=== PATIENT | male | born 1970 | race Caucasian/White ===

== ENCOUNTER 2017-02-04 14:44 | Emergency (ER) | payer MEDICARE, MEDICAID ==
[~2017-02-04] VITALS: Ht 167.6 cm; Wt 75.0 kg
[~2017-02-04 14:44] MED LIST: ALPHAGAN P0.1 %; ALPHAGAN P0.1 % OP; AMLODIPINE5 MG PO; AMOXICILLIN500 MG PO; ASPIRIN LOW DOS81 M1 PO; ATENOLOL50 MG PO; BACTRIM DS1 TAB PO; BAYER ASPIRIN E81 MG PO; CAMBIA50 MG; CLONIDINE0.1 MG; CLONIDINE0.1 MG PO; CYCLOBENZAPR10 MG PO; DIVALPROEX SOD500 M2; GLUCOPHAGE1000 MG PO; GLUCOPHAGE500 MG OR; GLUCOPHAGE500 MG PO; HYTRIN1 MG OR; INSULIN SY SC; LASIX20 MG OR; LEVEMIR1000 UNITS IM; LEVEMIR1000 UNITS SC; LEVOTHYROXIN25 MCG OR; LIPITOR10 MG PO; LIPITOR40 M1 PO; LIPITOR40 MG PO; LOPRESSOR 550 MG/TAB PO; LORTAB 5 OR; LOSARTAN POT100 MG PO; LOSARTAN POT25 MG PO; LOSARTAN POT50 MG PO; METFORMIN500 MG PO; MINOCYCLINE100 MG PO; NAFTIN2 % EX; NAPROXEN250 MG OR; NIFEDIPINE30 M1 OR; NOVOLOG100 IU/1 M IM; NOVOLOG100 IU/1 M SC; PERCOCET 5/325M1 TAB PO; PLAVIX75 MG PO; PROSCAR OR; TENORETIC 501 TAB PO; TENORMIN OR; TRAMADOL HCL50 MG PO; TRAMADOL HYDROC50 MG PO; TRIAMCINOLON0.5 % EX; ULTRAM50 M1 PO; [UNRECOGNIZED DRUG - CODE] SC; [UNRECOGNIZED DRUG - OTHER] SC; [UNRECOGNIZED DRUG - REMARK]
[2017-02-04] MEDS ORDERED: MOTRIN800 MG PO (16:04)
[2017-02-04] MEDS ORDERED: PERCOCET 5/325M1 TAB PO (16:04)
[2017-02-04] MEDS ORDERED: FLEXERIL PO (16:04)
[2017-02-04 16:20] VITALS: BP 149/74
== END 2017-02-04 16:20 | disposition home or self-care (01) ==
LOC: ED 14:44
DX: M43.6 Torticollis (principal); M62.830 Muscle spasm of back

== ENCOUNTER 2017-06-04 10:56 | Inpatient (IN) | payer MEDICARE, MEDICAID ==
[~2017-06-04] VITALS: Ht 167.6 cm; Wt 72.0 kg
[~2017-06-04 10:56] MED LIST changes: +BENZONATATE200 MG PO; +FLEXERIL PO; +GABAPENTIN400 M2 PO; +GLYBURIDE5 M1 PO; +IBUPROFEN600 MG PO; +LEVEMIR100 UNIT/M; +METHOCARBAM750 MG PO; +METOPROLOL SUCC50 MG PO; +MOTRIN800 MG PO; +TGT OMEPRAZ20 MG PO
[2017-06-04] MEDS ORDERED: BACLOFEN10 MG PO (11:22)
[2017-06-04 11:57] LABS: HEMATOCRIT 48.8 % (39.0-50.0); HEMOGLOBIN 17.3 g/dl (14.0-18.0); MEAN CELL VOLUME 79.2 fL CALC (80.0-100.0); MEAN CORPUSCULAR HGB 28.1 pG CALC (26.0-32.0); MEAN CORPUSCULAR HGB CONC 35.5 g/L CALC (32.0-36.0); NEUT# 6.37 thou/uL (1.82-7.42); RED BLOOD COUNT 6.16 mill/uL (4.70-6.10); RED CELL DISTRI WIDTH 12.9 % (11.5-15.5)
[2017-06-04 12:11] LABS: ALBUMIN 4.6 g/dL (3.2-5.0); ALKALINE PHOSPHATASE 110 u/l (38-126); ANION GAP 20 (6-22 (CALC)); BILIRUBIN, TOTAL 0.8 mg/dL (0.0-1.4); BUN 19 mg/dL (9-20); BUN/CREATININE RATIO 26 (12-20 (CALC)); CALCIUM 9.7 mg/dL (8.4-10.2); CARBON DIOXIDE 23 mmol/l (22-30); CHLORIDE 91 mmol/l (95-108); CREATININE 0.8 mg/dL (0.7-1.3); GFR > 60 ML/MIN (>=60 (CALC)); GFR FOR AFR.AMER. > 60 ML/MIN (>=60 (CALC)); MAGNESIUM 1.6 mg/dL (1.6-2.3); POTASSIUM 4.9 mmol/l (3.5-5.1); SGOT/AST 16 u/l (17-59); SGPT/ALT 34 u/l (21-72); SODIUM 129 mmol/l (137-146); TOTAL PROTEIN 8.1 g/dL (6.3-8.2)
[2017-06-04 12:19] LABS: GLUCOSE 700 mg/dL (75-110)
[2017-06-04 14:03] VITALS: BP 158/93
[2017-06-04 16:06] VITALS: BP 160/97
[2017-06-04 19:27] VITALS: BP 158/88
[2017-06-04 23:35] VITALS: BP 133/83
[2017-06-05 03:51] VITALS: BP 123/78
[2017-06-05 05:51] LABS: HEMATOCRIT 48.1 % (39.0-50.0); HEMOGLOBIN 16.9 g/dl (14.0-18.0); IMMATURE GRANULOCYTES 2.1 % (0.0-1.0); MEAN CELL VOLUME 79.6 fL CALC (80.0-100.0); MEAN CORPUSCULAR HGB CONC 35.1 g/L CALC (32.0-36.0); NEUT# 5.55 thou/uL (1.82-7.42); RED BLOOD COUNT 6.04 mill/uL (4.70-6.10); RED CELL DISTRI WIDTH 13.1 % (11.5-15.5)
[2017-06-05 06:18] LABS: ANION GAP 15 (6-22 (CALC)); BUN 18 mg/dL (9-20); BUN/CREATININE RATIO 25 (12-20 (CALC)); CALCIUM 9.6 mg/dL (8.4-10.2); CARBON DIOXIDE 29 mmol/l (22-30); CHLORIDE 99 mmol/l (95-108); CREATININE 0.7 mg/dL (0.7-1.3); GFR > 60 ML/MIN (>=60 (CALC)); GFR FOR AFR.AMER. > 60 ML/MIN (>=60 (CALC)); GLUCOSE 204 mg/dL (75-110); POTASSIUM 4.4 mmol/l (3.5-5.1); SODIUM 138 mmol/l (137-146)
[2017-06-05 08:37] LABS: CHOLESTEROL HDL RATIO 5.5 (<4.4 (CALC))
== END 2017-06-05 08:32 | disposition left against medical advice (07) | DRG 639 ==
LOC: ED 10:56 → ED-I 12:25 → ED 12:57 → MS2 12:58
PROVIDERS: Emergency Medicine; Nurse Practitioner Family; ADMIT Internal Medicine; ATTEND Internal Medicine
DX: E11.65 Type 2 diabetes mellitus with hyperglycemia (principal); E11.42 Type 2 diabetes mellitus with diabetic polyneuropathy; N31.9 Neuromuscular dysfunction of bladder, unspecified; E86.0 Dehydration; I10 Essential (primary) hypertension; F17.290 Nicotine dependence, other tobacco product, uncomplicated; E78.5 Hyperlipidemia, unspecified; Z86.73 Personal history of transient ischemic attack (TIA), and cerebral infarction without residual deficits; Z87.442 Personal history of urinary calculi; Z91.14 Patient's other noncompliance with medication regimen; Z79.84 Long term (current) use of oral hypoglycemic drugs; Z79.4 Long term (current) use of insulin

== ENCOUNTER 2017-08-09 07:21 | Emergency (ER) | payer MEDICARE, MEDICAID ==
[~2017-08-09] VITALS: Ht 167.6 cm; Wt 65.9 kg
[~2017-08-09 07:21] MED LIST changes: +BACLOFEN10 MG PO
[2017-08-09 09:42] VITALS: BP 153/87
== END 2017-08-09 09:45 | disposition home or self-care (01) ==
LOC: ED 07:21
DX: S80.02XA Contusion of left knee, initial encounter (principal); E11.40 Type 2 diabetes mellitus with diabetic neuropathy, unspecified; G89.29 Other chronic pain; M54.9 Dorsalgia, unspecified; I10 Essential (primary) hypertension; W19.XXXA Unspecified fall, initial encounter; Z87.442 Personal history of urinary calculi; Z91.81 History of falling; Z79.899 Other long term (current) drug therapy

== ENCOUNTER 2017-08-25 20:37 | Emergency (ER) | payer MEDICARE, MEDICAID ==
[~2017-08-25] VITALS: Ht 167.6 cm; Wt 85.0 kg
[2017-08-25] MEDS ORDERED: LOSARTAN POT50 MG PO (21:02)
[2017-08-25] MEDS ORDERED: PRAVASTATIN20 MG PO (21:03)
[2017-08-25] MEDS ORDERED: LEVEMIR100 UNIT/M SC (21:04)
[2017-08-25] MEDS ORDERED: PERCOCET 5/325M1 TAB PO (21:39)
[2017-08-25] MEDS ORDERED: ORPHENADRINE100 MG PO (21:39)
[2017-08-25 22:07] VITALS: BP 132/81
== END 2017-08-25 22:08 | disposition home or self-care (01) ==
LOC: ED 20:37
DX: G89.29 Other chronic pain (principal); E11.42 Type 2 diabetes mellitus with diabetic polyneuropathy; Z79.4 Long term (current) use of insulin; I10 Essential (primary) hypertension

== ENCOUNTER 2017-10-30 21:31 | Emergency (ER) | payer MEDICARE, MEDICAID ==
[~2017-10-30] VITALS: Ht 167.6 cm; Wt 82.2 kg
[~2017-10-30 21:31] MED LIST changes: +LEVEMIR100 UNIT/M SC; +ORPHENADRINE100 MG PO; +PRAVASTATIN20 MG PO
[2017-10-30 22:14] LABS: HEMOGLOBIN 10.8 g/dl (14.0-18.0); IMMATURE GRANULOCYTES 0.6 % (0.0-1.0); MEAN CELL VOLUME 84.7 fL CALC (80.0-100.0); MEAN CORPUSCULAR HGB 28.6 pG CALC (26.0-32.0); MEAN CORPUSCULAR HGB CONC 33.8 g/L CALC (32.0-36.0); NEUT# 3.44 thou/uL (1.82-7.42); RED BLOOD COUNT 3.78 mill/uL (4.70-6.10); RED CELL DISTRI WIDTH 12.4 % (11.5-15.5)
[2017-10-30] MEDS ORDERED: OMEPRAZOLE20 M2 PO (22:26)
[2017-10-30] MEDS ORDERED: ARGININE PO (22:27)
[2017-10-30] MEDS ORDERED: COQ-10100 M1 PO (22:27)
[2017-10-30] MEDS ORDERED: DULOXETINE HCL20 MG PO (22:29)
[2017-10-30] MEDS ORDERED: ROPINIROLE1 MG PO (22:29)
[2017-10-30] MEDS ORDERED: AMITRIPTYLIN50 MG PO (22:30)
[2017-10-30 22:31] LABS: ALBUMIN 4.4 g/dL (3.2-5.0); ALKALINE PHOSPHATASE 213 u/l (38-126); ANION GAP 15 (6-22 (CALC)); BILIRUBIN, TOTAL 0.4 mg/dL (0.0-1.4); BUN 24 mg/dL (9-20); BUN/CREATININE RATIO 18 (12-20 (CALC)); CALCIUM 9.5 mg/dL (8.4-10.2); CARBON DIOXIDE 26 mmol/l (22-30); CHLORIDE 103 mmol/l (95-108); CREATININE 1.3 mg/dL (0.7-1.3); GFR 59 ML/MIN (>=60 (CALC)); GFR FOR AFR.AMER. > 60 ML/MIN (>=60 (CALC)); GLUCOSE 154 mg/dL (75-110); POTASSIUM 4.5 mmol/l (3.5-5.1); SGOT/AST 42 u/l (17-59); SGPT/ALT 35 u/l (21-72); SODIUM 140 mmol/l (137-146); TOTAL PROTEIN 7.9 g/dL (6.3-8.2)
[2017-10-30] MEDS ORDERED: TAMSULOSIN HCL0.4 MG PO (22:31)
[2017-10-30] MEDS ORDERED: HYDROCO/APAP1 T10 PO (22:34)
[2017-10-30] MEDS ORDERED: AMOX/K CLAV875 M1 PO (22:36)
[2017-10-30 22:37] LABS: PROTHROMBIN TIME 10.6 SECONDS (9.0-12.5)
[2017-10-30 22:43] LABS: MYOGLOBIN 32 ng/mL (0 - 121)
[2017-10-31 00:01] VITALS: BP 137/79
== END 2017-10-31 00:05 | disposition home or self-care (01) ==
LOC: ED 21:31
PROVIDERS: Emergency Medicine
DX: H53.8 Other visual disturbances (principal); Z86.73 Personal history of transient ischemic attack (TIA), and cerebral infarction without residual deficits; I10 Essential (primary) hypertension; E11.9 Type 2 diabetes mellitus without complications; Z79.4 Long term (current) use of insulin; R94.31 Abnormal electrocardiogram [ECG] [EKG]

== ENCOUNTER 2017-11-10 13:04 | Emergency (ER) | payer MEDICARE, MEDICAID ==
[~2017-11-10] VITALS: Ht 167.6 cm; Wt 72.0 kg
[~2017-11-10 13:04] MED LIST changes: +AMITRIPTYLIN50 MG PO; +AMOX/K CLAV875 M1 PO; +ARGININE PO; +COQ-10100 M1 PO; +DULOXETINE HCL20 MG PO; +HYDROCO/APAP1 T10 PO; +OMEPRAZOLE20 M2 PO; +ROPINIROLE1 MG PO; +TAMSULOSIN HCL0.4 MG PO
[2017-11-10 13:27] LABS: HEMATOCRIT 35.2 % (39.0-50.0); HEMOGLOBIN 11.7 g/dl (14.0-18.0); IMMATURE GRANULOCYTES 0.9 % (0.0-1.0); MEAN CELL VOLUME 83.2 fL CALC (80.0-100.0); MEAN CORPUSCULAR HGB 27.7 pG CALC (26.0-32.0); MEAN CORPUSCULAR HGB CONC 33.2 g/L CALC (32.0-36.0); NEUT# 4.53 thou/uL (1.82-7.42); RED BLOOD COUNT 4.23 mill/uL (4.70-6.10); RED CELL DISTRI WIDTH 12.1 % (11.5-15.5)
[2017-11-10 13:42] LABS: ALBUMIN 4.4 g/dL (3.2-5.0); ALKALINE PHOSPHATASE 213 u/l (38-126); ANION GAP 15 (6-22 (CALC)); BILIRUBIN, TOTAL 0.4 mg/dL (0.0-1.4); BUN 18 mg/dL (9-20); BUN/CREATININE RATIO 14 (12-20 (CALC)); CALCIUM 9.6 mg/dL (8.4-10.2); CARBON DIOXIDE 29 mmol/l (22-30); CHLORIDE 100 mmol/l (95-108); CREATININE 1.3 mg/dL (0.7-1.3); GFR 59 ML/MIN (>=60 (CALC)); GFR FOR AFR.AMER. > 60 ML/MIN (>=60 (CALC)); GLUCOSE 255 mg/dL (75-110); POTASSIUM 4.4 mmol/l (3.5-5.1); SGOT/AST 25 u/l (17-59); SGPT/ALT 34 u/l (21-72); SODIUM 140 mmol/l (137-146); TOTAL PROTEIN 7.7 g/dL (6.3-8.2)
[2017-11-10 13:55] LABS: MYOGLOBIN 39 ng/mL (0 - 121)
[2017-11-10 14:57] LABS: URINE BILIRUBIN - DIPSTICK NEGATIVE (NEGATIVE); URINE BLOOD DIPSTICK NEGATIVE (NEGATIVE); URINE COLOR YELLOW; URINE GLUCOSE - DIPSTICK >=1000 mg/dL (NEGATIVE); URINE KETONE NEGATIVE (NEGATIVE); URINE LEUK ESTERASE NEGATIVE (NEGATIVE); URINE NITRITE - DIPSTICK NEGATIVE (Negative); URINE PROTEIN - DIPSTICK NEGATIVE (NEG-TRACE); URINE SPECIFIC GRAVITY 1.015; URINE UROBILINOGEN - DIPSTICK 0.2 E.U./dL (0.2)
[2017-11-10 14:58] LABS: URINE CLARITY CLEAR
[2017-11-10] MEDS ORDERED: METHOCARBAM500 MG PO (16:41)
[2017-11-10] MEDS ORDERED: VITAMIN B-12500 MCG PO (16:43)
[2017-11-10] MEDS ORDERED: TRAVATAN Z0.004 % (16:47)
[2017-11-10] MEDS ORDERED: SUCRALFATE1 GM PO (16:48)
[2017-11-10] MEDS ORDERED: NOVOLIN N100 UNIT/1 (16:49)
[2017-11-10 18:07] VITALS: BP 112/66
== END 2017-11-10 18:07 | disposition home or self-care (01) ==
LOC: ED 13:04
PROVIDERS: Emergency Medicine
DX: R06.02 Shortness of breath (principal); I10 Essential (primary) hypertension
CPT/HCPCS: Q9967

== ENCOUNTER 2018-08-20 09:28 | Outpatient (RCR) | payer MEDICARE, MEDICAID ==
[~2018-08-20 09:28] MED LIST changes: +METHOCARBAM500 MG PO; +NOVOLIN N100 UNIT/1; +SUCRALFATE1 GM PO; +TRAVATAN Z0.004 %; +VITAMIN B-12500 MCG PO
== END 2018-08-20 10:28 | disposition home or self-care (01) ==
LOC: OPWC 09:28
PROVIDERS: ATTEND Emergency Medicine
DX: T81.31XA Disruption of external operation (surgical) wound, not elsewhere classified, initial encounter (principal); S31.30XA Unspecified open wound of scrotum and testes, initial encounter

== ENCOUNTER 2021-10-31 15:03 | Observation (INO) | payer MEDICARE, MEDICAID ==
[~2021-10-31] VITALS: Ht 167.6 cm; Wt 90.0 kg
--- NOTE | 2021-10-31 15:03 | NUR ---
PT TO ROOM VIA WC. ABLE TO STAND AND TRANSFER SELF TO STRETCHER.
[2021-10-31 15:28] LABS: IMMATURE GRANULOCYTES 1.6 % (0.0-5.0); MEAN CELL VOLUME 83.3 fL CALC (80.0-100.0); MEAN CORPUSCULAR HGB 27.6 pG CALC (26.0-32.0); MEAN CORPUSCULAR HGB CONC 33.1 g/dL CAL (32.0-36.0); NEUT# 7.89 thou/uL (1.82-7.42); RED BLOOD COUNT 5.58 mill/uL (4.70-6.10); RED CELL DISTRI WIDTH 12.1 % (11.5-15.5)
[2021-10-31 15:29] LABS: HEMATOCRIT 46.5 % (39.0-50.0); HEMOGLOBIN 15.4 g/dl (14.0-18.0)
[2021-10-31 15:42] LABS: ALKALINE PHOSPHATASE 126 u/l (38-126); BUN 20 mg/dL (9-20); BUN/CREATININE RATIO 18 (12-20 (CALC)); CREATININE 1.1 mg/dL (0.7-1.3); GFR > 60 ML/MIN (>=60 (CALC)); GFR FOR AFR.AMER. > 60 ML/MIN (>=60 (CALC)); POTASSIUM 4.5 mmol/l (3.5-5.1); SGOT/AST 18 u/l (17-59); TOTAL PROTEIN 8.1 g/dL (6.3-8.2)
[2021-10-31 15:52] LABS: ANION GAP 20 (6-22 (CALC)); BILIRUBIN, TOTAL 0.9 mg/dL (0.0-1.4); CARBON DIOXIDE 23 mmol/l (22-30); CHLORIDE 89 mmol/l (95-108); SODIUM 127 mmol/l (137-146)
[2021-10-31 16:52] LABS: URINE BILIRUBIN - DIPSTICK NEGATIVE (NEGATIVE); URINE BLOOD DIPSTICK NEGATIVE (NEGATIVE); URINE COLOR YELLOW; URINE GLUCOSE - DIPSTICK >=1000 mg/dL (NEGATIVE); URINE KETONE NEGATIVE (NEGATIVE); URINE LEUK ESTERASE NEGATIVE (NEGATIVE); URINE PH 5.5 (4.5-8.0); URINE PROTEIN - DIPSTICK NEGATIVE (NEG-TRACE); URINE UROBILINOGEN - DIPSTICK 0.2 E.U./dL (0.2)
[2021-10-31 16:55] LABS: URINE NITRITE - DIPSTICK NEGATIVE (Negative)
--- NOTE | 2021-10-31 17:05 | NUR ---
SITTING ON EDGE OF STRETCHER, RESPS EVEN AND UNLABORED ON ROOM AIR, VSS, MONITORS ATTACHED.
--- NOTE | 2021-10-31 17:48 | NUR ---
MD AT BEDSIDE TO DISCUSS RESULTS AND POC.
--- NOTE | 2021-10-31 18:05 | NUR ---
INSULIN GTT INITIATED PER PROTOCOL
--- NOTE | 2021-10-31 18:18 | NUR ---
INSULIN GTT STOPPED PER MD ORDERS
--- NOTE | 2021-10-31 18:53 | NUR ---
REPORT GIVEN TO KOBE BA
--- NOTE | 2021-10-31 19:00 | NUR ---
PER MARVIN BA, MYXREDLIN INSULIN MEDICATION WAS SCANNED BUT WAS NOT GIVEN.
--- NOTE | 2021-10-31 19:04 | NUR ---
REPORT GIVEN BY MEJIA WONG AT BEDSIDE
--- NOTE | 2021-10-31 19:04 | NUR ---
BLOOD GLUCOSE RECHECKED-233
--- NOTE | 2021-10-31 19:43 | NUR ---
PT READJUSTED IN BED
--- NOTE | 2021-10-31 20:40 | NUR ---
PT GIVEN APPLESAUCE
--- NOTE | 2021-10-31 21:40 | NUR ---
PT REFUSING TO STAY IN HOSPITAL; PT STATES I WANT TO LEAVE; I CAN NOT BE HERE ANYMORE, I JUST WANT TO GO HOME
[2021-10-31 22:00] VITALS: BP 124/90
--- NOTE | 2021-10-31 22:00 | NUR ---
NURSING OBTAINING AMA FORM FOR PT
--- NOTE | 2021-10-31 22:00 | NUR ---
Patient decides to leave AMA. Multiple attempts made to ecourage patient to remain here for continued treatment. Explained to patient all risks of leaving against medical advice including . Pt verbalized understanding of all risks. Pt also encouraged to return to [facility] at any time, especially if symptoms continue or become worse. Pt verbalized understanding.
== END 2021-10-31 22:00 | disposition left against medical advice (07) ==
LOC: ED 15:03 → ED-I 17:40 → ED 19:04 → ED-I 19:05
PROVIDERS: Family Medicine; ADMIT Internal Medicine; ATTEND Internal Medicine
DX: E11.65 Type 2 diabetes mellitus with hyperglycemia (principal); I10 Essential (primary) hypertension; Z79.4 Long term (current) use of insulin; Z20.822 Contact with and (suspected) exposure to COVID-19

== ENCOUNTER 2023-02-12 08:12 | Inpatient (IN) | payer MEDICARE, MEDICAID ==
[~2023-02-12] VITALS: Ht 167.6 cm; Wt 73.9 kg
[2023-02-12 08:29] VITALS: BP 150/89
[2023-02-12 09:30] LABS: BASO% 0.3 % (0-3); EOS% 0.8 % (0-8); HEMATOCRIT 46.2 % (39.0-50.0); HEMOGLOBIN 15.9 g/dl (14.0-18.0); IMMATURE GRANULOCYTES 0.5 % (0.0-5.0); LYMPH% 19.3 % (15-41); MEAN CELL VOLUME 80.2 fL CALC (80.0-100.0); MEAN CORPUSCULAR HGB 27.6 pG CALC (26.0-32.0); MEAN CORPUSCULAR HGB CONC 34.4 g/dL CAL (32.0-36.0); NEUT# 6.79 thou/uL (1.82-7.42); NEUT% 70.1 % (42-76); RED BLOOD COUNT 5.76 mill/uL (4.70-6.10); RED CELL DISTRI WIDTH 11.8 % (11.5-15.5)
[2023-02-12 09:54] LABS: ALBUMIN 4.1 g/dL (3.2-5.0); ALKALINE PHOSPHATASE 110 u/l (38-126); BILIRUBIN, TOTAL 0.8 mg/dL (0.2-1.3); BUN 19 mg/dL (9-20); BUN/CREATININE RATIO 19 (12-20 (CALC)); CHLORIDE 91 mmol/l (95-108); GFR FOR AFR.AMER. > 60 ML/MIN (>=60 (CALC)); GFR OTHER RACES > 60 ML/MIN (>=60 (CALC)); POTASSIUM 4.7 mmol/l (3.5-5.1); SGOT/AST 19 u/l (17-59); SODIUM 129 mmol/l (137-146)
[2023-02-12 10:28] LABS: ANION GAP 13 (6-22 (CALC)); CARBON DIOXIDE 30 mmol/l (22-30)
[2023-02-12 10:37] LABS: URINE BILIRUBIN - DIPSTICK NEGATIVE (NEGATIVE); URINE BLOOD DIPSTICK NEGATIVE (NEGATIVE); URINE COLOR YELLOW; URINE GLUCOSE - DIPSTICK >=1000 mg/dL (NEGATIVE); URINE KETONE NEGATIVE (NEGATIVE); URINE LEUK ESTERASE NEGATIVE (NEGATIVE); URINE PH 5.5 (4.5-8.0); URINE PROTEIN - DIPSTICK NEGATIVE (NEG-TRACE); URINE SPECIFIC GRAVITY <=1.005; URINE UROBILINOGEN - DIPSTICK 0.2 E.U./dL (0.2)
[2023-02-12 10:43] LABS: URINE NITRITE - DIPSTICK NEGATIVE (Negative)
[2023-02-12 13:40] VITALS: BP 121/74
[2023-02-12 14:10] VITALS: BP 121/74
[2023-02-12 14:22] VITALS: BP 123/79
[2023-02-12 18:33] VITALS: BP 149/86
[2023-02-12 20:00] VITALS: BP 149/86
[2023-02-13 03:49] VITALS: BP 109/76
[2023-02-13 05:54] LABS: MAGNESIUM 1.8 mg/dL (1.6-2.3)
[2023-02-13 06:12] VITALS: BP 117/62
[2023-02-13 07:00] VITALS: BP 117/62
[2023-02-13 07:23] LABS: ALBUMIN 3.3 g/dL (3.2-5.0); ALKALINE PHOSPHATASE 70 u/l (38-126); BUN 16 mg/dL (9-20); BUN/CREATININE RATIO 20 (12-20 (CALC)); CARBON DIOXIDE 26 mmol/l (22-30); CREATININE 0.8 mg/dL (0.7-1.3); GFR FOR AFR.AMER. > 60 ML/MIN (>=60 (CALC)); GFR OTHER RACES > 60 ML/MIN (>=60 (CALC)); TOTAL PROTEIN 6.3 g/dL (6.3-8.2)
[2023-02-13 07:25] LABS: ANION GAP 10 (6-22 (CALC)); BILIRUBIN, TOTAL 0.4 mg/dL (0.2-1.3); CHLORIDE 105 mmol/l (95-108); POTASSIUM 3.5 mmol/l (3.5-5.1); SGOT/AST 39 u/l (17-59); SODIUM 137 mmol/l (137-146)
[2023-02-13 15:32] VITALS: BP 109/71
[2023-02-13 16:05] VITALS: BP 109/71
[2023-02-13 19:29] VITALS: BP 141/72
[2023-02-14 04:03] VITALS: BP 109/83
[2023-02-14 06:11] LABS: HEMATOCRIT 42.9 % (39.0-50.0); HEMOGLOBIN 14.3 g/dl (14.0-18.0); MEAN CELL VOLUME 83.6 fL CALC (80.0-100.0); MEAN CORPUSCULAR HGB 27.9 pG CALC (26.0-32.0); MEAN CORPUSCULAR HGB CONC 33.3 g/dL CAL (32.0-36.0); RED BLOOD COUNT 5.13 mill/uL (4.70-6.10); RED CELL DISTRI WIDTH 12.2 % (11.5-15.5)
[2023-02-14 06:41] LABS: ALBUMIN 3.5 g/dL (3.2-5.0); ALKALINE PHOSPHATASE 69 u/l (38-126); BUN 19 mg/dL (9-20); BUN/CREATININE RATIO 21 (12-20 (CALC)); CARBON DIOXIDE 30 mmol/l (22-30); CHLORIDE 104 mmol/l (95-108); CREATININE 0.9 mg/dL (0.7-1.3); GFR FOR AFR.AMER. > 60 ML/MIN (>=60 (CALC)); GFR OTHER RACES > 60 ML/MIN (>=60 (CALC)); MAGNESIUM 1.9 mg/dL (1.6-2.3); SGOT/AST 22 u/l (17-59); SODIUM 140 mmol/l (137-146); TOTAL PROTEIN 6.6 g/dL (6.3-8.2)
[2023-02-14 06:43] LABS: ANION GAP 11 (6-22 (CALC)); BILIRUBIN, TOTAL 0.2 mg/dL (0.2-1.3); POTASSIUM 4.9 mmol/l (3.5-5.1)
[2023-02-14 06:47] VITALS: BP 111/75
[2023-02-14 14:36] VITALS: BP 115/71
[2023-02-14 19:12] VITALS: BP 122/74
[2023-02-15 03:54] VITALS: BP 139/84
[2023-02-15 06:05] LABS: BASO% 0.4 % (0-3); EOS% 1.6 % (0-8); HEMATOCRIT 44.4 % (39.0-50.0); HEMOGLOBIN 14.8 g/dl (14.0-18.0); IMMATURE GRANULOCYTES 0.9 % (0.0-5.0); LYMPH% 14.2 % (15-41); MEAN CELL VOLUME 84.4 fL CALC (80.0-100.0); MEAN CORPUSCULAR HGB 28.1 pG CALC (26.0-32.0); MEAN CORPUSCULAR HGB CONC 33.3 g/dL CAL (32.0-36.0); MONO% 10.9 % (2-13); NEUT# 7.55 thou/uL (1.82-7.42); RED BLOOD COUNT 5.26 mill/uL (4.70-6.10); RED CELL DISTRI WIDTH 12.2 % (11.5-15.5)
[2023-02-15 06:28] LABS: ALBUMIN 3.5 g/dL (3.2-5.0); ALKALINE PHOSPHATASE 77 u/l (38-126); ANION GAP 11 (6-22 (CALC)); BUN 20 mg/dL (9-20); BUN/CREATININE RATIO 22 (12-20 (CALC)); CARBON DIOXIDE 29 mmol/l (22-30); CHLORIDE 101 mmol/l (95-108); CREATININE 0.9 mg/dL (0.7-1.3); GFR FOR AFR.AMER. > 60 ML/MIN (>=60 (CALC)); GFR OTHER RACES > 60 ML/MIN (>=60 (CALC)); MAGNESIUM 1.8 mg/dL (1.6-2.3); POTASSIUM 4.9 mmol/l (3.5-5.1); SGOT/AST 23 u/l (17-59); SODIUM 137 mmol/l (137-146); TOTAL PROTEIN 6.7 g/dL (6.3-8.2)
[2023-02-15 06:36] LABS: BILIRUBIN, TOTAL 0.3 mg/dL (0.2-1.3)
[2023-02-15 06:54] VITALS: BP 100/63
[2023-02-15 16:17] VITALS: BP 165/95
[2023-02-15 19:00] VITALS: BP 131/84
[2023-02-15 19:01] VITALS: BP 131/84
[2023-02-16 04:54] VITALS: BP 100/62
[2023-02-16 05:24] LABS: HEMATOCRIT 43.4 % (39.0-50.0); HEMOGLOBIN 14.4 g/dl (14.0-18.0); MEAN CELL VOLUME 84.1 fL CALC (80.0-100.0); MEAN CORPUSCULAR HGB 27.9 pG CALC (26.0-32.0); MEAN CORPUSCULAR HGB CONC 33.2 g/dL CAL (32.0-36.0); RED BLOOD COUNT 5.16 mill/uL (4.70-6.10); RED CELL DISTRI WIDTH 12.1 % (11.5-15.5)
[2023-02-16 06:03] LABS: ALBUMIN 3.2 g/dL (3.2-5.0); ALKALINE PHOSPHATASE 80 u/l (38-126); ANION GAP 12 (6-22 (CALC)); BILIRUBIN, TOTAL 0.2 mg/dL (0.2-1.3); BUN 21 mg/dL (9-20); BUN/CREATININE RATIO 26 (12-20 (CALC)); CARBON DIOXIDE 29 mmol/l (22-30); CHLORIDE 101 mmol/l (95-108); CREATININE 0.8 mg/dL (0.7-1.3); GFR FOR AFR.AMER. > 60 ML/MIN (>=60 (CALC)); GFR OTHER RACES > 60 ML/MIN (>=60 (CALC)); MAGNESIUM 1.8 mg/dL (1.6-2.3); POTASSIUM 4.6 mmol/l (3.5-5.1); SGOT/AST 25 u/l (17-59); SODIUM 137 mmol/l (137-146); TOTAL PROTEIN 5.9 g/dL (6.3-8.2)
[2023-02-16 07:41] VITALS: BP 109/69
[2023-02-16 14:51] VITALS: BP 123/74
[2023-02-16 18:19] VITALS: BP 102/59
[2023-02-16 19:00] VITALS: BP 102/59
[2023-02-17 04:00] VITALS: BP 116/71
[2023-02-17 04:17] VITALS: BP 116/71
[2023-02-17 06:36] VITALS: BP 112/67
[2023-02-17 14:21] VITALS: BP 131/80
[2023-02-17 19:58] VITALS: BP 134/80
[2023-02-18 04:15] VITALS: BP 114/65
[2023-02-18 05:59] LABS: HEMATOCRIT 38.3 % (39.0-50.0); HEMOGLOBIN 12.8 g/dl (14.0-18.0); MEAN CELL VOLUME 85.7 fL CALC (80.0-100.0); MEAN CORPUSCULAR HGB 28.6 pG CALC (26.0-32.0); MEAN CORPUSCULAR HGB CONC 33.4 g/dL CAL (32.0-36.0); RED BLOOD COUNT 4.47 mill/uL (4.70-6.10); RED CELL DISTRI WIDTH 12.2 % (11.5-15.5)
[2023-02-18 06:12] LABS: ALBUMIN 2.9 g/dL (3.2-5.0); ALKALINE PHOSPHATASE 82 u/l (38-126); ANION GAP 9 (6-22 (CALC)); BUN 18 mg/dL (9-20); BUN/CREATININE RATIO 27 (12-20 (CALC)); CARBON DIOXIDE 29 mmol/l (22-30); CHLORIDE 101 mmol/l (95-108); CREATININE 0.7 mg/dL (0.7-1.3); GFR FOR AFR.AMER. > 60 ML/MIN (>=60 (CALC)); GFR OTHER RACES > 60 ML/MIN (>=60 (CALC)); MAGNESIUM 1.7 mg/dL (1.6-2.3); POTASSIUM 3.9 mmol/l (3.5-5.1); SGOT/AST 26 u/l (17-59); SODIUM 136 mmol/l (137-146); TOTAL PROTEIN 5.7 g/dL (6.3-8.2)
[2023-02-18 07:21] VITALS: BP 104/70
[2023-02-18 18:38] VITALS: BP 126/73
[2023-02-18 22:17] VITALS: BP 133/77
[2023-02-19 04:26] VITALS: BP 117/67
[2023-02-19 06:04] VITALS: BP 123/70
[2023-02-19 18:49] VITALS: BP 137/82
[2023-02-20 04:28] VITALS: BP 112/66
[2023-02-20 05:58] VITALS: BP 121/72
[2023-02-20 15:19] VITALS: BP 140/85
[2023-02-20 19:02] VITALS: BP 141/84
[2023-02-21 04:13] VITALS: BP 150/90
[2023-02-21 06:41] VITALS: BP 154/81
[2023-02-21] MEDS ORDERED: LEVEMIR FL100 UNIT/M SC (08:46)
[2023-02-21] MEDS ORDERED: HUMALOG KW100 UNIT/M SC (08:47)
[2023-02-21] MEDS ORDERED: ZYVOX600 MG PO (08:50)
[2023-02-21] MEDS ORDERED: LORTAB 5/3255 MG PO (08:52)
== END 2023-02-21 10:13 | DRG 603 ==
LOC: ED 08:12 → ED-I 11:00 → ED 11:46 → MS2 11:47
PROVIDERS: Family Medicine; Nurse Practitioner Family; ADMIT Internal Medicine; ATTEND Internal Medicine
PROC: 0J9Q0ZZ Drainage of Right Foot Subcutaneous Tissue and Fascia, Open Approach (ICD-10-PCS; principal; 2023-02-18)
DX: L02.611 Cutaneous abscess of right foot (principal); L03.115 Cellulitis of right lower limb; E11.65 Type 2 diabetes mellitus with hyperglycemia; I10 Essential (primary) hypertension; E11.40 Type 2 diabetes mellitus with diabetic neuropathy, unspecified; E78.5 Hyperlipidemia, unspecified; H54.8 Legal blindness, as defined in USA; N31.9 Neuromuscular dysfunction of bladder, unspecified; N40.0 Benign prostatic hyperplasia without lower urinary tract symptoms; B95.1 Streptococcus, group B, as the cause of diseases classified elsewhere; T78.1XXA Other adverse food reactions, not elsewhere classified, initial encounter; R11.0 Nausea; L29.9 Pruritus, unspecified; X58.XXXA Exposure to other specified factors, initial encounter; Z79.84 Long term (current) use of oral hypoglycemic drugs; Z79.4 Long term (current) use of insulin; Z88.1 Allergy status to other antibiotic agents; Z86.73 Personal history of transient ischemic attack (TIA), and cerebral infarction without residual deficits; Z18.10 Retained metal fragments, unspecified; Z20.822 Contact with and (suspected) exposure to COVID-19
CPT/HCPCS: J1650; J2020; S0073

== ENCOUNTER 2023-04-10 16:27 | Inpatient (IN) | payer MEDICARE, MEDICAID ==
[~2023-04-10] VITALS: Ht 167.6 cm; Wt 77.9 kg
[~2023-04-10 16:27] MED LIST changes: +HUMALOG KW100 UNIT/M SC; +LEVEMIR FL100 UNIT/M SC; +LORTAB 5/3255 MG PO; +ZYVOX600 MG PO
[2023-04-10 16:48] VITALS: BP 129/76
--- NOTE | 2023-04-10 17:12 | NUR ---
PT ARRIVED ON UNIT @ 1637 BY AMBULATING, ALERT AND ORIENTED X 3, C/O SHARP PAIN @ 7/10 TO RIGHT FOOT, SETTLED IN ROOM, ORIENTED TO ROOM AND CALL LINO. REFUSED TO HAVE IV CATHETER PLACE, REFUSED TO PUT GOWN ON. DRESSING TO RIGHT FOOT IN PLACE, PT REPORTS HOME HEALTH NURSE SHOULD HAVE CHANGED DRESSING TODAY BUT DID NOT.WILL CONTINUE TO MONITOR.
--- NOTE | 2023-04-10 17:20 | NUR ---
PT'S BLOOD SUGAR WAS 173 @1720. NURSE NOTIDIED.
--- NOTE | 2023-04-10 17:34 | NUR ---
CONTACTED DR FAYE'S OFFICE IN REFERENCE TO A PHYSICIAN CONSULT. I SPOKE WITH MAYRA (ANSWERING SERVICE) AT 1728 HRS.
[2023-04-10 17:51] LABS: BASO% 0.5 % (0-3); HEMATOCRIT 43.7 % (39.0-50.0); IMMATURE GRANULOCYTES 0.5 % (0.0-5.0); LYMPH% 26.9 % (15-41); MEAN CORPUSCULAR HGB 27.6 pG CALC (26.0-32.0); MONO% 8.8 % (2-13); NEUT# 4.05 thou/uL (1.82-7.42); NEUT% 61.3 % (42-76); RED BLOOD COUNT 5.08 mill/uL (4.70-6.10)
[2023-04-10 18:15] LABS: ALKALINE PHOSPHATASE 55 u/l (38-126); ANION GAP 12 (6-22 (CALC)); BUN 28 mg/dL (9-20); BUN/CREATININE RATIO 24 (12-20 (CALC)); CARBON DIOXIDE 30 mmol/l (22-30); CHLORIDE 104 mmol/l (95-108); CREATININE 1.2 mg/dL (0.7-1.3); GFR FOR AFR.AMER. > 60 ML/MIN (>=60 (CALC)); GFR OTHER RACES > 60 ML/MIN (>=60 (CALC)); SGOT/AST 26 u/l (17-59); SODIUM 142 mmol/l (137-146)
[2023-04-10 18:22] LABS: ALBUMIN 4.4 g/dL (3.2-5.0); BILIRUBIN, TOTAL 0.2 mg/dL (0.2-1.3); TOTAL PROTEIN 7.6 g/dL (6.3-8.2)
--- NOTE | 2023-04-10 19:47 | NUR ---
PT'S MED REC NOT DONE PT STATES HE DOES NOT KNOW NAMES OR DOSES OF MEDS BUT HE KNOWS THE REASON FOR TAKING THEM, HE DID MONTION HE TAKES BLOOD PRESSURE MEDS AND SEIZURE MEDS.
[2023-04-10 19:49] VITALS: BP 96/62
--- NOTE | 2023-04-10 20:06 | NUR ---
RECIEVE BEDSIDE REPORT. PT A/OX3. RESPIRATIONS EVEN AND UNLABORED ON ROOM AIR. LUNG SOUNDS CLEAR. HEART RHYTHM NORMAL. BOWEL SOUNDS ACTIVE. NO IV SITE PATENT. AWARE. PT AGREEES TO IV PLACEMENT IN AM BEFORE SURGERY. DRESSING TO RIGHT FOOT REMAINS CDI, SCHEDULED FOR I&D WITH PANICCO. PEDAL PULSES WEAK. PT DENIES OF ANY PAINS. TERRAZZO WORKER HELPER INFORMED IN REPORT OF DNR, PT DOES NOT HAVE COPY. PT EXPRESSED TO BOTH MEJIA FLORES AND TERRAZZO WORKER HELPER THAT HE DOES NOT WANT TO RESESITATED, MD AWARE. ATTEMPTED TO COMPLETE MED REC, PT STATES "THE ONLY THING I KNOW IS THAT I TAKE 9 PILLS AND 2 INSULINS." NO RECORD FROM MD OFFICE AND PT STATES THERE IS NO ONE AT HOME TO READ THEM OFF OVER PHONE. PT ORIENTED TO ROOM AND CALL SYSTEM. ALL SAFTEY PRECAUTIONS ARE IN PLACE WITH ALL LIGHT IN REACH.
--- NOTE | 2023-04-10 20:55 | NUR ---
pt had a BP of @1948. JADA Mehta notified @1949.
[2023-04-10 21:12] LABS: URINE BILIRUBIN - DIPSTICK NEGATIVE (NEGATIVE); URINE BLOOD DIPSTICK NEGATIVE (NEGATIVE); URINE CLARITY CLEAR; URINE COLOR YELLOW; URINE GLUCOSE - DIPSTICK >=1000 mg/dL (NEGATIVE); URINE KETONE NEGATIVE (NEGATIVE); URINE LEUK ESTERASE NEGATIVE (Negative); URINE NITRITE - DIPSTICK NEGATIVE (Negative); URINE PROTEIN - DIPSTICK NEGATIVE (NEG-TRACE); URINE UROBILINOGEN - DIPSTICK 0.2 E.U./dL (0.2)
[2023-04-10] MEDS ORDERED: LEXAPRO20 MG PO (23:32)
[2023-04-10] MEDS ORDERED: DEPAKOTE ER500 MG PO (23:32)
--- NOTE | 2023-04-10 23:32 | NUR ---
PT RESTING IN SEMI FOWLERS POSITION. RESPIRATIONS EVEN AND UNLABORED ON ROOM AIR. SCHEDULED MEDS ADMINISTERED. PT NPO AT THIS TIME. PT VERBALIZED UNDERSTANDING. PT DENIES OF ANY ADDITIONAL NEEDS. ALL SAFTEY PRECAUTIONS IN PLACE
[2023-04-10] MEDS ORDERED: NEURONTIN600 MG PO (23:33)
[2023-04-10] MEDS ORDERED: COZAAR50 MG PO (23:33)
[2023-04-10] MEDS ORDERED: KEPPRA500 M2 PO (23:33)
[2023-04-10] MEDS ORDERED: JARDIANCE25 MG PO (23:33)
[2023-04-10] MEDS ORDERED: PRAVASTATIN40 MG PO (23:34)
[2023-04-10] MEDS ORDERED: METFORMIN HCL1000 MG PO (23:34)
[2023-04-10] MEDS ORDERED: LOPRESSOR25 M1 PO (23:34)
[2023-04-10] MEDS ORDERED: TRESIBA FL100 UNIT/M SC (23:35)
[2023-04-10] MEDS ORDERED: TIZANIDINE4 MG PO (23:35)
--- NOTE | 2023-04-11 04:18 | NUR ---
PT SLEEPING IN LOW FOWLERS POSITION. RESPIRATIONS EVEN AND UNLABORED ON ROOM AIR. IV SITE TO BE OBTAINED. DRESSING TO RIGHT FOOT REMAINS CDI. NO SIGHS OF DISTRESS AT THIS TIME. ALL SAFTEY PRECAUTIONS ARE IN PLACE WITH CALL LIGHT IN REACH.
[2023-04-11 05:17] VITALS: BP 105/65
[2023-04-11 06:36] VITALS: BP 90/60
--- NOTE | 2023-04-11 07:27 | NUR ---
PT RESTING IN LOW FOWLERS POSITION.A/OX3 ASSESSMENT AND VS COMPLETED. PT TO HAVE POSSIBLE PROCEDURE DONE TODAY. HEART RHYTHM NORM. RESPIRATIONS ON ROOM AIR.IV SITE NOTED Nicolle NEWMAN AT BEDSIDE
--- NOTE | 2023-04-11 07:30 | NUR ---
Nurse was notified of blood pressure being low.
[2023-04-11 09:09] VITALS: BP 93/55
--- NOTE | 2023-04-11 11:11 | NUR ---
PT OFF FLOOR PER OR NURSES RECIEVED PT. ALL SAFETY PRECAUTIONS IN PLACE.
--- NOTE | 2023-04-11 13:41 | NUR ---
PT RETURNED FROM OR VIA STRETCHER SURGICAL WOUND TO RIGHT FOOT. SCD LOCATED ON LEFT. POST OP VITAL SIGNS SET PT REQUESTED FOOD FOOD PROVIDED DIABETIC DIET PER MD. FLUIDS INFUSING TO RAC . PT DENIES ADDITIONAL NEEDS AT THE TIME.
[2023-04-11 15:22] VITALS: BP 99/59
--- NOTE | 2023-04-11 15:40 | NUR ---
PT RESTING IN LOW FOWLERS POSITION PT WOUND VAC IN PLACE. PT WHEN EYES CLOSED AND RESTING FOOT FALLS FROM PILLOW PT EDUCATED TO KEEP ELEVATED PT AWARE NO ICE TO BE USED.
[2023-04-11 16:22] VITALS: BP 109/63
--- NOTE | 2023-04-11 17:53 | NUR ---
PT HAS NOT URINATED SINCE ARRIVAL TO FLOOR. EDUCATED PT NEED OF URINATION IF NOT POSSIBLE URINARY CATH. INSERT.
[2023-04-11 19:24] VITALS: BP 103/66
--- NOTE | 2023-04-11 20:15 | NUR ---
RECIEVED REPORT FROM DAYSHIFT NURSE. PY IS LAYING IN BED IN SEMIFOWLER POSITION WITH WOUND VAC ON RIGHT FOOT. FOOT IS PROPPED UP AND PT STATES THAT HE IS STARTING TO HAVE SOME PAIN. PT ACKNOWLEGES CHANGE OF NURSE FOR THE NIGHT. CALL LIGHT WITHIN REACH AND SAFTEY PRECAUTIONS IN PLACE.
--- NOTE | 2023-04-11 21:27 | NUR ---
PT HAS NOT VOIDED SINCE ARRIVNG TO UNIT FROM PACU TODAY. PT DENIES ANY PAIN/ DISCOMFORT OR PRESSURE. PT EDUCATED ON POSSIBLE STRAIGHT CATH OR MURPHY INSERTION. PT IS ADAMANT HE WILL NOT ALLOW INSERTION OF ANY TYPE OF CATHETER AT THIS TIME. RISKS DISCUSSED WITH PT AND PT AGREES TO ADVISE NURSE IF HE FEELS ANY PAIN/ DISCOMFORT/ OR PRESSURE. ON EXAM PT'S BLADDER DOES NOT FEEL DISTENDED AT THIS TIME. BLADDER SCANNER IS NOT CURRENTLY WORKING. DISCUSSED WITH PRIMARY NURSE Irene CROWLEY AND Araceli DAVE APRN MADE AWARE.
[2023-04-12] VITALS (7 sets, daily range): BP systolic 99–120; BP diastolic 60–75
--- NOTE | 2023-04-12 00:30 | NUR ---
PT IS SLEEPING IN BE COMFORTABLY. PT SHOWS NO SIGNS OF PAIN OR DISCOMFORT AT THIS TIME. CALL LIGHT WITHIN REACH AND SAFETY PRECAUTIONS IN PLACE.
--- NOTE | 2023-04-12 04:30 | NUR ---
PT IS SITTING UP IN BED AWAKE. PT STATES HE WANTS TO SIT IN THE RECLINER. PT COMPLAINS OF PAIN IN FOOT BEING A 6 OUT OF 10. PAIN MED WAS GIVEN. CALL LIGHT WITHIN REACH AND SAFETY PRECAUTIONS IN PLACE.
[2023-04-12 06:03] LABS: BASO% 0.4 % (0-3); HEMOGLOBIN 13.8 g/dl (14.0-18.0); IMMATURE GRANULOCYTES 0.9 % (0.0-5.0); LYMPH% 39.8 % (15-41); MEAN CELL VOLUME 88.7 fL CALC (80.0-100.0); MEAN CORPUSCULAR HGB 27.8 pG CALC (26.0-32.0); MEAN CORPUSCULAR HGB CONC 31.4 g/dL CAL (32.0-36.0); MONO% 7.4 % (2-13); NEUT# 2.76 thou/uL (1.82-7.42); NEUT% 48.5 % (42-76); RED BLOOD COUNT 4.96 mill/uL (4.70-6.10); RED CELL DISTRI WIDTH 13.3 % (11.5-15.5)
[2023-04-12 06:23] LABS: ALBUMIN 3.6 g/dL (3.2-5.0); ALKALINE PHOSPHATASE 50 u/l (38-126); ANION GAP 10 (6-22 (CALC)); BUN 20 mg/dL (9-20); BUN/CREATININE RATIO 19 (12-20 (CALC)); CARBON DIOXIDE 29 mmol/l (22-30); CHLORIDE 107 mmol/l (95-108); CREATININE 1.1 mg/dL (0.7-1.3); GFR FOR AFR.AMER. > 60 ML/MIN (>=60 (CALC)); GFR OTHER RACES > 60 ML/MIN (>=60 (CALC)); POTASSIUM 4.8 mmol/l (3.5-5.1); SGOT/AST 27 u/l (17-59); SODIUM 142 mmol/l (137-146); TOTAL PROTEIN 6.4 g/dL (6.3-8.2)
[2023-04-12 06:32] LABS: BILIRUBIN, TOTAL 0.3 mg/dL (0.2-1.3)
--- NOTE | 2023-04-12 07:50 | NUR ---
PT C/O ITCHING ALL OVER AFTER ZOSYN IV ANTIBIOTIC. MARY,CLAIMS TECHNICIAN NOTIFIED AND ORDER FOR BENADRYL GIVEN. ADMINISTERED, WILL MONITOR PT CLOSELY.
--- NOTE | 2023-04-12 08:00 | NUR ---
PT SITTING UP IN CHAIR ALERT AND ORIENTED X3. PT STATES ITCHING IMPROVED WITH BENADRYL. PT HAS NO C/O PAIN AT THIS TIME. IV TO RAC CLEAN AND INTACT. PT AMBULATES WELL TO BATHROOM FOR TOILETING NEEDS. WOUND VAC TO RIGHT FOOT INTACT AND DRAINING. CALL LIGHT WITHIN REACH.
--- NOTE | 2023-04-12 12:00 | NUR ---
PT SITTING UP ON BED EATING BREAKFAST. PT HAS NO C/O PAIN AT THIS ITME. NO CHANGE IN STATUS AT THIS TIME. CALL LIGHT WITHIN REACH.
--- NOTE | 2023-04-12 16:00 | NUR ---
PT HAS FAMILY IN ROOM AT BEDSIDE. PT HAS NO C/O PAIN . NO CHANGE IN STATUS. WOUND VAC TO RIGHT FOOT INTACT. CALL LIGHT WITHIN REACH.
--- NOTE | 2023-04-12 20:02 | NUR ---
BEDSIDE REPORT RECIEVED. PT A/OX3. RESPIRATIONS EVEN AND UNLABORED ON ROOM AIR. LUNG SOUNDS CLEAR. HEART RHYTHM NORMAL. BOWEL SOUNDS ACTIVE. #20G RAC PATENT. WOUND VAC TO RIGHT FOOT, SUCTION @125. MINIMAL DRAINAGE NOTED.EVEVATED WITH PILLOW X2.PT C/O 05/27 PAIN, MEDICATED PER EMAR. GLUCOSE 182, COVERAGE ADMINISTERED. PT DENIES OF ANY NEEDS. ALL SAFTEY PRECAUTIONS ARE IN PLACE WITH CALL LIGHT IN REACH
[2023-04-13] VITALS (8 sets, daily range): BP systolic 91–111; BP diastolic 54–78
--- NOTE | 2023-04-13 00:52 | NUR ---
PT SLEEPING IN SEMI FOWLERS POSITION. RESPIRATIONS EVEN AND UNLABORED ON ROOM AIR. #20G RAC REMAINS IN PLACE. WOUND VAC TO RIGHT FOOT, SUCTION @125 WITH DRESSING CDI. NO SIGNS OF ANY DISTRESS. ALL SAFTEY PRECAUTIONS ARE IN PLACE WITH CALL LIGHT IN REACH.
--- NOTE | 2023-04-13 04:41 | NUR ---
PT SITTING UP IN RECYLINER WATCHING TV. RESPIRATIONS EVEN AND UNLABORED ON ROOM AIR. #20G RAC NOTED. WOUND VAC TO RIGHT FOOT @125, DRESSING CDI. PT REMINDED ON HEAL TOUCH WEIGHT BEARING. PT VERBALIZED UNDERSTANDING. PT DENIES OF ANY NEEDS. ALL SAFTEY PRECAUTIONS ARE IN PLACE WITH CALL LIGHT IN REACH.
[2023-04-13 04:59] LABS: BASO% 0.5 % (0-3); EOS% 1.4 % (0-8); HEMOGLOBIN 14.1 g/dl (14.0-18.0); IMMATURE GRANULOCYTES 0.4 % (0.0-5.0); LYMPH% 40.3 % (15-41); MEAN CELL VOLUME 89.6 fL CALC (80.0-100.0); MEAN CORPUSCULAR HGB 28.1 pG CALC (26.0-32.0); MEAN CORPUSCULAR HGB CONC 31.3 g/dL CAL (32.0-36.0); MONO% 8.7 % (2-13); NEUT# 2.76 thou/uL (1.82-7.42); NEUT% 48.7 % (42-76); RED BLOOD COUNT 5.02 mill/uL (4.70-6.10); RED CELL DISTRI WIDTH 13.2 % (11.5-15.5)
[2023-04-13 05:18] LABS: ALBUMIN 3.9 g/dL (3.2-5.0); ALKALINE PHOSPHATASE 53 u/l (38-126); BILIRUBIN, TOTAL 0.2 mg/dL (0.2-1.3); BUN 24 mg/dL (9-20); BUN/CREATININE RATIO 19 (12-20 (CALC)); CARBON DIOXIDE 31 mmol/l (22-30); CHLORIDE 107 mmol/l (95-108); CREATININE 1.3 mg/dL (0.7-1.3); GFR FOR AFR.AMER. > 60 ML/MIN (>=60 (CALC)); GFR OTHER RACES 58 ML/MIN (>=60 (CALC)); SGOT/AST 34 u/l (17-59); SODIUM 142 mmol/l (137-146); TOTAL PROTEIN 6.7 g/dL (6.3-8.2)
[2023-04-13 05:20] LABS: ANION GAP 8 (6-22 (CALC)); POTASSIUM 4.4 mmol/l (3.5-5.1)
--- NOTE | 2023-04-13 06:48 | NUR ---
PT REFUSED TO HAVE HIS GLUCOSE LEVEL CHECK. NURSE WAS NOTIFIED.
--- NOTE | 2023-04-13 08:00 | NUR ---
PT ALERT AND ORIENTED X 3, PT HAS NO C/O PAIN AT THIS TIME. IV SITE TO RAC CLEAN AND INTACT. WOUND VAC CLEAN AND INTACT TO RIGHT FOOT, SUCTIONING MOD AMOUNT OF DRAINAGE. PT AMBULATES WELL TO BATHROOM FOR TOILETING. PT HAS CALL LIGHT WITHIN REACH.
--- NOTE | 2023-04-13 12:00 | NUR ---
PT LAYING IN BED RESTING WITH EYES CLOSED, AWAKENED TO VERBAL STIMULI. PT HAS NO C/O PAIN AT THIS TIME. NO CHANGE IN STATUS AT THIS TIME. PT HAS CALL LIGHT SHABNAMEightfold LogicCLINTON ROY.
--- NOTE | 2023-04-13 16:00 | NUR ---
PT IN BED RESTING. PT HAS NO C/O PAIN AT THIS TIME. WOUND VAC INTACT. PT HAS NO CHANGE IN STATUS AT THIS TIME. PT HAS CALL LIGHT WITHIN REACH.
--- NOTE | 2023-04-13 20:00 | NUR ---
PT RESTING IN BED, NO SIGNS OF DISTRESS NOTED, RESP EVEN AND UNLABORED. PT ALERT AND ORIENTED X3, RLE ELEVATED ON PILLOWS, DRESSING CDI, PT HAS A WOUND VAC CONTINUOUS SUCTION 125. PT DENIES ANY PAIN AT THIS TIME. DISCUSSED POC, ASSESSMENT COMPLETED AT THIS TIME. CALL LIGHT IN REACH,CONTINUE TO MONITOR.
--- NOTE | 2023-04-14 | NUR ---
PT RESTING IN BED, NO SIGNS OF DISTRESS NOTED, RESP EVEN AND UNLABORED. IV MAXWELL QUINTERO, PT DENIES ANY NEEDS OR COMPLAINTS AT THIS TIME, CALL LIGHT IN REACH,CONTINUE TO MONITOR.
[2023-04-14 04:12] VITALS: BP 147/85
--- NOTE | 2023-04-14 04:14 | NUR ---
PT RESTING IN BED WATCHING TV, NO SIGNS OF DISTRESS NOTED, RESP EVEN AND UNLABORED. AM LABS OBTAINED, TOLERATED WELL. VITALS OBTAINED. PT DENIES ANY NEEDS OR COMPLAINTS AT THIS TIME. CALL LIGHT IN REACH, CONTINUE TO MONITOR.
[2023-04-14 05:09] LABS: BASO% 0.4 % (0-3); EOS% 2.2 % (0-8); HEMATOCRIT 41.5 % (39.0-50.0); HEMOGLOBIN 13.1 g/dl (14.0-18.0); IMMATURE GRANULOCYTES 0.5 % (0.0-5.0); LYMPH% 38.2 % (15-41); MEAN CELL VOLUME 87.9 fL CALC (80.0-100.0); MEAN CORPUSCULAR HGB 27.8 pG CALC (26.0-32.0); MEAN CORPUSCULAR HGB CONC 31.6 g/dL CAL (32.0-36.0); MONO% 10.3 % (2-13); NEUT# 2.68 thou/uL (1.82-7.42); NEUT% 48.4 % (42-76); RED BLOOD COUNT 4.72 mill/uL (4.70-6.10); RED CELL DISTRI WIDTH 13.1 % (11.5-15.5)
[2023-04-14 05:10] LABS: ANION GAP 7 (6-22 (CALC)); BUN 18 mg/dL (9-20); BUN/CREATININE RATIO 15 (12-20 (CALC)); CARBON DIOXIDE 32 mmol/l (22-30); CHLORIDE 106 mmol/l (95-108); CREATININE 1.2 mg/dL (0.7-1.3); GFR FOR AFR.AMER. > 60 ML/MIN (>=60 (CALC)); GFR OTHER RACES > 60 ML/MIN (>=60 (CALC)); MAGNESIUM 1.9 mg/dL (1.6-2.3); POTASSIUM 4.2 mmol/l (3.5-5.1); SODIUM 141 mmol/l (137-146)
[2023-04-14 05:22] VITALS: BP 147/85
[2023-04-14 06:10] VITALS: BP 126/83
--- NOTE | 2023-04-14 09:22 | NUR ---
PT SEEN AT REST IN THE BED, NO ACUTE DISTRESS. RIGHT FOOT ELEVATED ON PILLOWS. PT MEDICATED FOR PAIN TO RIGHT FOOT. BREAKFAST INCLUDED FAM, WHICH WAS REFUSED BY PT PER SEVERE ALLERGY.
--- NOTE | 2023-04-14 12:04 | NUR ---
PT AMBULATORY TO BR, UNHOOKED FROM WOUND VAC TO ALLOW. NO FURTHER COMPLAINTS OF PAIN OR OTHERWISE.
[2023-04-14 14:56] VITALS: BP 109/75
--- NOTE | 2023-04-14 16:02 | NUR ---
PT CONTINUES AT REST IN THE BED, NO DISTRESS, NO COMPLAINTS OF PAIN TO RIGHT FOOT.
[2023-04-14 18:12] VITALS: BP 151/90
--- NOTE | 2023-04-14 20:00 | NUR ---
RECEIVED REPORT FROM NURSE ROSS, PATIENT RESTING IN BED, ALERT ORIENTED, NOTED MILDY RED ON CHEST AND BACK, SALINE LOCK NOTED ON RAC PATENT FLUSHES WELL, LUNG SOUNDS CLEAR BM 04/14, BS 142, PATIENT ON WOUND VAC RT FOOT SUCTION AT 125 GOOD SEAL, RT FOOT OFFLOADED WITH 2 PILLOWS, C/O PAIN PS 05/27 WILL MEDICATE, PATIENT BED PADDED FOR SEIZURE PREC CALL LIGHT IN REACH, BED IN LOW POSITION.
--- NOTE | 2023-04-15 00:51 | NUR ---
PATIENT AWAKE AT THIS TIME, STILL WITH WOUND VAC RT FOOT 125 SUCTION, GOOD SEAL, DUE ZOSYN GIVEN CALL LIGHT IN REACH.
[2023-04-15 03:59] VITALS: BP 142/87
--- NOTE | 2023-04-15 04:52 | NUR ---
PATIENT RESTING IN BED EYES CLOSED, BREATHING EVEN UNLABORED, N0 DISCOMFOTRS NOTED AT THIS TIME, CALL LIGHT IN REACH, RT LEG ELEVATED WITH TWO PILLOWS.
[2023-04-15 05:00] LABS: BASO% 0.2 % (0-3); EOS% 2.4 % (0-8); HEMATOCRIT 41.1 % (39.0-50.0); HEMOGLOBIN 12.8 g/dl (14.0-18.0); IMMATURE GRANULOCYTES 0.6 % (0.0-5.0); MEAN CELL VOLUME 87.8 fL CALC (80.0-100.0); MEAN CORPUSCULAR HGB 27.4 pG CALC (26.0-32.0); MEAN CORPUSCULAR HGB CONC 31.1 g/dL CAL (32.0-36.0); MONO% 11.6 % (2-13); NEUT# 2.46 thou/uL (1.82-7.42); NEUT% 46.2 % (42-76); RED BLOOD COUNT 4.68 mill/uL (4.70-6.10); RED CELL DISTRI WIDTH 13.3 % (11.5-15.5)
[2023-04-15 05:14] LABS: ANION GAP 7 (6-22 (CALC)); BUN 17 mg/dL (9-20); BUN/CREATININE RATIO 17 (12-20 (CALC)); CARBON DIOXIDE 33 mmol/l (22-30); CHLORIDE 104 mmol/l (95-108); GFR FOR AFR.AMER. > 60 ML/MIN (>=60 (CALC)); GFR OTHER RACES > 60 ML/MIN (>=60 (CALC)); MAGNESIUM 1.9 mg/dL (1.6-2.3); POTASSIUM 4.4 mmol/l (3.5-5.1); SODIUM 139 mmol/l (137-146)
--- NOTE | 2023-04-15 05:44 | NUR ---
PATIENT INITIALLY REFUSING ZOSYN BUT LATER AGREED TO GET DOSE OF IV ZOSYN, STATED HE WILL GO HOME TODAY.
--- NOTE | 2023-04-15 06:49 | NUR ---
PT RESTING IN LOW FOWLERS POSITION.A/OX3 PT RESPIRATIONS ON ROOM AIR. IV SITE NOTED. PT WOUND VAC IN PLACE 125MMHG. PT STATED WILL BE LEAVING TODAY PT STATED NO ONE AT HOME TO FEED DOGS . PT EDUCATED THE NEED OF STAY PT REFUSED. EDUCATED WAIT FOR PROVIDER TO ROUND PT STATED WILL LEAVE BY 0800. PT NEED OF REINFORCEMENT.ALL SAFETY PRECAUTIONS IN PLACE.
[2023-04-15 07:04] VITALS: BP 176/91
--- NOTE | 2023-04-15 12:42 | NUR ---
PT RESTING WOUND VAC IN PLACE. AT 125MMHG. PT STATED WAITING TO TALK WITH PHARMACIST UPDATE ON MEDICATIONS . PT HAS NOT LEFT AMA. PT DENIES ADDITIONAL NEEDS AT THE TIME.
--- NOTE | 2023-04-15 16:30 | NUR ---
wound vac dressing dressed with gauze ,kerlix wrap and gustavo wrap.
--- NOTE | 2023-04-15 16:30 | NUR ---
PT WOUND VAC DRESSING CHANGED. NO LEAKS NOTED PER WOUND VAC. @ 125MMHG. PER PROVIDER NOTE DUE SATURDAY,SATURDAY AND SATURDAY. PT ACCU CHECK AND VS COLLECTED PT NO LONGER TO AMA. PT ABLE TO FIND SOMEONE TO FEED DOGS AT HOME. PT DENIES ADDITIONAL NEEDS AT THE TIME ALL SAFETY PRECAUTION IN PLACE WITH CALL LIGHT IN REACH.
[2023-04-15 16:40] VITALS: BP 134/73
--- NOTE | 2023-04-15 18:05 | NUR ---
PT UNABLE TO OBTAIN ULTRASOUND TODAY DUE TO US UNAVAILABLE PER HOLIDAY.
[2023-04-15 20:15] VITALS: BP 135/80
--- NOTE | 2023-04-15 20:15 | NUR ---
RECEIVED REPORT FROM DAYSHIFT NURSE. PT IS LYING IN BED IN SEMIFOWLERS POSITION. ADVISED PT OF CHANGE OF SHIFT AND CHANGE OF NURSE FOR THE NIGHT. PT ACKNOWLEGED. PT STATES OF HAVING NO PAIN AT THIS MOMENT AND HAS NO COMPLAINTS AT THIS MOMENT ASWELL. CALL LIGHT WITHIN REACH AND SAFETY PRECAUTIONS IN PLACE.
--- NOTE | 2023-04-16 00:20 | NUR ---
PT IS LYING IN BED SLEEPING COMFORTABLY. PT SHOWS NO SIGNS OF PAIN OR DISTRESS AT THIS TIME. CALL LIGHT WITHIN REACH AND SAFETY PRECAUTIONS IN PLACE.
--- NOTE | 2023-04-16 02:30 | NUR ---
PT C/O PAIN TO RT FOOT, LEVEL 8/10; ADMINISTERED PAIN MED PER EMAR. SAFETY PRECAUTIONS IN PLACE WITH CALL LIGHT IN REACH.
[2023-04-16 03:33] VITALS: BP 129/71
--- NOTE | 2023-04-16 04:17 | NUR ---
PT RESTING ON BED WITH EYES CLOSED. NO DISTRESS OR PAIN NOTED. VS COMPLETED. NO VOICED NEEDS AT THIS TIME. SAFETY PRECAUTIONS IN PLACE WITH CALL LIGHT IN REACH.
--- NOTE | 2023-04-16 08:00 | NUR ---
PT UP IN CHAIR EATING BREAKFAST. ALERT AND ORIENTED X 3. PT HAS NO C/O PAIN AT THIS TIME. LUNGS SOUNDS CLEAR. IV TO RAC CLEAN AND INTACT. WOUND VAC TO RIGHT FOOT INTACT WITH SUCTION ON AT 125. DRESSING CLEAN AND FREE FROM DRAINAGE AT THIS TIME. AMBULATES TO BATHROOM FOR TOILETING NEEDS. PT HAS CALL LIGHT WITHIN REACH.
[2023-04-16 08:39] VITALS: BP 121/71
--- NOTE | 2023-04-16 12:30 | NUR ---
PT DOWN TO ER FOR PICC PLACEMENT. NO CHANGE IN STATUS AT THIS TIME.
--- NOTE | 2023-04-16 12:58 | NUR ---
PT OUT OF BED UP TO SHOWER. PT HAS NO C/O PAIN AT THIS TIME. PT HAS CALL LIGHT WITHIN REACH. NO CHANGE IN STATUS AT THIS TIME.
[2023-04-16 14:46] VITALS: BP 147/80
[2023-04-16 15:03] VITALS: BP 147/80
--- NOTE | 2023-04-16 16:00 | NUR ---
PT SITTING UP IN CHAIR WATCHING TV. PT HAS NO C/O PAIN AT THIS TIME. PT HAS NO CHANGE IN STATUS. CALL LIGHT WITHIN REACH.
[2023-04-16 18:47] VITALS: BP 163/87
--- NOTE | 2023-04-16 19:26 | NUR ---
BEDSIDE REPORT RECEIVED FROM OFF GOING NURSE. PATIENT AWAKE AND TALKATIVE WITH A MALE AND FEMALE VISITOR AT BEDSIDE. C/O PAIN TO RIGHT FOOT. WOUND VAC REMAINS IN PLACE TO RIGHT FOOT AND FOOT IS ELEVATED OFF BED. WILL MEDICATE FOR PAIN PER MD ORDER. RESPIRATIONS EVEN AND UNLABORED ON ROOM AIR. CALL LIGHT WITHIN REACH.
[2023-04-16 19:27] VITALS: BP 163/87
--- NOTE | 2023-04-16 22:28 | NUR ---
PATIENT SITTING UP IN RECLINER IN ROOM WATCHING TV. DENIES PAIN OR DISCOMFORT AT THIS TIME. CALL LIGHT WITHIN REACH.
--- NOTE | 2023-04-16 23:45 | NUR ---
REPORT RECEIVED FROM Treva GREEN RN
--- NOTE | 2023-04-16 23:45 | NUR ---
BEDSIDE REPORT GIVEN TO ONCOMING NURSE. PATIENT AWAKE IN RECLINER WATCHING TV. DENIES PAIN OR DISCOMFORT AT THIS TIME. CALL LIGHT WITHIN REACH.
--- NOTE | 2023-04-17 01:05 | NUR ---
B/P 122/70
[2023-04-17 03:59] VITALS: BP 103/58
--- NOTE | 2023-04-17 04:31 | NUR ---
LABS DRAWN AT THIS TIME. PICC TO SUNSHINE PATENT WITH POSITIVE BLOOD RETURN. PATIENT TOLERATED WELL. ANB STARTED AT THIS TIME.
[2023-04-17 06:02] LABS: BASO% 0.5 % (0-3); EOS% 2.6 % (0-8); HEMATOCRIT 41.1 % (39.0-50.0); HEMOGLOBIN 13.1 g/dl (14.0-18.0); IMMATURE GRANULOCYTES 0.8 % (0.0-5.0); LYMPH% 34.3 % (15-41); MEAN CELL VOLUME 87.3 fL CALC (80.0-100.0); MEAN CORPUSCULAR HGB 27.8 pG CALC (26.0-32.0); MEAN CORPUSCULAR HGB CONC 31.9 g/dL CAL (32.0-36.0); MONO% 12.3 % (2-13); NEUT# 3.06 thou/uL (1.82-7.42); NEUT% 49.5 % (42-76); RED BLOOD COUNT 4.71 mill/uL (4.70-6.10); RED CELL DISTRI WIDTH 13.6 % (11.5-15.5)
[2023-04-17 06:33] VITALS: BP 134/76
[2023-04-17 06:37] LABS: ALBUMIN 3.7 g/dL (3.2-5.0); ALKALINE PHOSPHATASE 43 u/l (38-126); ANION GAP 8 (6-22 (CALC)); BUN 19 mg/dL (9-20); BUN/CREATININE RATIO 22 (12-20 (CALC)); CARBON DIOXIDE 34 mmol/l (22-30); CHLORIDE 104 mmol/l (95-108); CREATININE 0.8 mg/dL (0.7-1.3); GFR FOR AFR.AMER. > 60 ML/MIN (>=60 (CALC)); GFR OTHER RACES > 60 ML/MIN (>=60 (CALC)); MAGNESIUM 1.8 mg/dL (1.6-2.3); SGOT/AST 21 u/l (17-59); SODIUM 141 mmol/l (137-146); TOTAL PROTEIN 6.4 g/dL (6.3-8.2)
[2023-04-17 06:40] LABS: BILIRUBIN, TOTAL 0.1 mg/dL (0.2-1.3)
--- NOTE | 2023-04-17 07:30 | NUR ---
RECIEVED BEDSIDE REPORT, NO S/S OF DISTRESS, PATIENT HAS NO NEEDS AT THIS TME OR COMPLAINTS OF PAIN, PATIENT SAFETY MEASURES IN PLACE.
--- NOTE | 2023-04-17 12:12 | NUR ---
PATIENT IN BED, NO S/S OF DISTRESS, PATIENT SAFTEY MEASURES IN PLACE, PATIENT MEDICATED FOR PAIN.
[2023-04-17 15:27] VITALS: BP 139/80
[2023-04-17 15:30] VITALS: BP 139/80
--- NOTE | 2023-04-17 18:28 | NUR ---
PATIENT AMBULLATORY IN ROOM, PAIN CONTROLED WITH PERCOCET,NO S/S OF DISTRESS, PATIENT SAFETY MEASURES IN PLACE.
[2023-04-17 19:02] VITALS: BP 140/78
--- NOTE | 2023-04-17 20:00 | NUR ---
PATIENT RESTING, WOUND VAC WORKING PROGRAMED AT 125MHG. PATIENT DENIES ANY CURRENT NEEDS OR CURRENT PAIN. CALL LIGHT AND BEDSIDE TABLE WITHIN REACH.
--- NOTE | 2023-04-18 01:00 | NUR ---
PATIENT ABX HUNG AT THIS TIME.
[2023-04-18 04:19] VITALS: BP 116/77
[2023-04-18 06:40] VITALS: BP 114/69
--- NOTE | 2023-04-18 06:58 | NUR ---
LABS DRAW AT THIS TIME. ABX STARTED
--- NOTE | 2023-04-18 07:00 | NUR ---
RECEIVE REPORT FROM RIBEIRO RN. PATIENT ALERTA AND ORIENTED X3. STABLE AT THIS TIME. REPORTS SOME PAIN BUT DOES NOT WANT MEDICATION NOW. PATIENT IS EDUCATED ABOUD MEDICATIONS FOR TODAY AND NURSING PLAN. PT REFER UNDERSTAND. SAFETY AND FALL PRECAUTIONS IN PLACE. CALL LIGHT WITHIN IN REACH.
[2023-04-18 07:25] LABS: BASO% 0.5 % (0-3); EOS% 3.1 % (0-8); HEMOGLOBIN 12.8 g/dl (14.0-18.0); IMMATURE GRANULOCYTES 0.9 % (0.0-5.0); LYMPH% 35.1 % (15-41); MEAN CELL VOLUME 87.3 fL CALC (80.0-100.0); MEAN CORPUSCULAR HGB 27.9 pG CALC (26.0-32.0); MONO% 13.3 % (2-13); NEUT# 2.59 thou/uL (1.82-7.42); NEUT% 47.1 % (42-76); RED BLOOD COUNT 4.58 mill/uL (4.70-6.10); RED CELL DISTRI WIDTH 13.6 % (11.5-15.5)
[2023-04-18 08:00] VITALS: BP 114/69
[2023-04-18 08:03] LABS: ALBUMIN 3.7 g/dL (3.2-5.0); ALKALINE PHOSPHATASE 40 u/l (38-126); ANION GAP 10 (6-22 (CALC)); BUN 21 mg/dL (9-20); BUN/CREATININE RATIO 25 (12-20 (CALC)); CARBON DIOXIDE 31 mmol/l (22-30); CHLORIDE 103 mmol/l (95-108); CREATININE 0.8 mg/dL (0.7-1.3); GFR FOR AFR.AMER. > 60 ML/MIN (>=60 (CALC)); GFR OTHER RACES > 60 ML/MIN (>=60 (CALC)); POTASSIUM 4.1 mmol/l (3.5-5.1); SGOT/AST 23 u/l (17-59); SODIUM 139 mmol/l (137-146); TOTAL PROTEIN 6.4 g/dL (6.3-8.2)
[2023-04-18 08:07] LABS: BILIRUBIN, TOTAL 0.2 mg/dL (0.2-1.3)
[2023-04-18 08:42] VITALS: BP 114/69
[2023-04-18] MEDS ORDERED: LORTAB 5/3255 MG PO (09:53)
[2023-04-18] MEDS ORDERED: PIPER/TAZOBA1 IN1 IV (10:39)
--- NOTE | 2023-04-18 11:37 | NUR ---
PATIENT WITH DISCHARGE ORDER. TRANSFER TO THE CORRECTION. WOUND VAC BANDAGE IS CHANGED ACCORDING TO MEDICAL ORDER. PATIENT TOLERATED WELL.
--- NOTE | 2023-04-18 14:02 | NUR ---
Discharge instructions given. Patient verbalizes understanding of same. Discharged in stable condition via Wheelchair to *Other with staff. All belongings sent with pt. CALLED [facility] AND THE REPORT IS GIVED TO MICHEAL ELIAS
== END 2023-04-18 13:57 | DRG 908 ==
LOC: MS2 16:27
PROVIDERS: Internal Medicine; Nurse Practitioner Family; ADMIT Internal Medicine; ATTEND Internal Medicine
PROC: 0LBV0ZZ Excision of Right Foot Tendon, Open Approach (ICD-10-PCS; principal; 2023-04-11)
PROC: 02HV33Z Insertion of Infusion Device into Superior Vena Cava, Percutaneous Approach (ICD-10-PCS; 2023-04-16)
PROC: B518ZZA Fluoroscopy of Superior Vena Cava, Guidance (ICD-10-PCS; 2023-04-16)
DX: T81.31XA Disruption of external operation (surgical) wound, not elsewhere classified, initial encounter (principal); L03.115 Cellulitis of right lower limb; L97.418 Non-pressure chronic ulcer of right heel and midfoot with other specified severity; I10 Essential (primary) hypertension; E11.65 Type 2 diabetes mellitus with hyperglycemia; E11.621 Type 2 diabetes mellitus with foot ulcer; E11.42 Type 2 diabetes mellitus with diabetic polyneuropathy; G40.909 Epilepsy, unspecified, not intractable, without status epilepticus; N31.9 Neuromuscular dysfunction of bladder, unspecified; F41.9 Anxiety disorder, unspecified; H54.8 Legal blindness, as defined in USA; B96.89 Other specified bacterial agents as the cause of diseases classified elsewhere; Y83.8 Other surgical procedures as the cause of abnormal reaction of the patient, or of later complication, without mention of misadventure at the time of the procedure; Z91.199 Patient's noncompliance with other medical treatment and regimen due to unspecified reason; Z79.84 Long term (current) use of oral hypoglycemic drugs; Z86.73 Personal history of transient ischemic attack (TIA), and cerebral infarction without residual deficits; Z88.1 Allergy status to other antibiotic agents; Z79.4 Long term (current) use of insulin; Z59.82 Transportation insecurity; Z59.89 Other problems related to housing and economic circumstances; Z20.822 Contact with and (suspected) exposure to COVID-19; L97.513 Non-pressure chronic ulcer of other part of right foot with necrosis of muscle; E11.40 Type 2 diabetes mellitus with diabetic neuropathy, unspecified
CPT/HCPCS: J0131; J1650; J3490

== ENCOUNTER 2025-01-10 07:27 | Inpatient (IN) | payer MEDICARE, MEDICAID ==
[2025-01-10] VITALS (10 sets, daily range): BP systolic 142–166; BP diastolic 76–99
[~2025-01-10] VITALS: Ht 167.6 cm; Wt 75.0 kg
[~2025-01-10 07:27] MED LIST changes: +COZAAR50 MG PO; +DEPAKOTE ER500 MG PO; +JARDIANCE25 MG PO; +KEPPRA500 M2 PO; +LEXAPRO20 MG PO; +LOPRESSOR25 M1 PO; +METFORMIN HCL1000 MG PO; +NEURONTIN600 MG PO; +PIPER/TAZOBA1 IN1 IV; +PRAVASTATIN40 MG PO; +TIZANIDINE4 MG PO; +TRESIBA FL100 UNIT/M SC
--- NOTE | 2025-01-10 07:35 | NUR ---
PT AMBULATES TO ROOM TWO.
[2025-01-10] MEDS ORDERED: SODIUM CHLORIDE 0.9% 1,000 ML IV ONE ×2 (07:45→08:50)
[2025-01-10] MEDS ORDERED: KETOROLAC TROMETHAMINE 15 MG/ML SDV IV ONE (07:45)
[2025-01-10 08:08] LABS: BASO% 0.3 % (0-3); EOS% 0.7 % (0-8); HEMATOCRIT 44.9 % (39.0-50.0); HEMOGLOBIN 15.5 g/dl (14.0-18.0); IMMATURE GRANULOCYTES 0.8 % (0.0-5.0); LYMPH% 15.4 % (15-41); MEAN CORPUSCULAR HGB 27.5 pG CALC (26.0-32.0); MEAN CORPUSCULAR HGB CONC 34.5 g/dL CAL (32.0-36.0); NEUT# 8.98 thou/uL (1.82-7.42); NEUT% 73.8 % (42-76); RED BLOOD COUNT 5.63 mill/uL (4.70-6.10); RED CELL DISTRI WIDTH 11.9 % (11.5-15.5)
[2025-01-10 08:12] LABS: MEAN CELL VOLUME 79.8 fL CALC (80.0-100.0)
[2025-01-10] MEDS ORDERED: AZTREONAM 1 GM in SODIUM CHLORIDE 0.9% 50 ML IV ONE (08:15)
[2025-01-10 08:20] LABS: BILIRUBIN, TOTAL 0.7 mg/dL (0.2-1.3); BUN 30 mg/dL (9-20); BUN/CREATININE RATIO 22 (12-20 (CALC)); CARBON DIOXIDE 28 mmol/l (22-30); CREATININE 1.4 mg/dL (0.7-1.3); ESTIMATED GFR 59 ML/MIN (>=90 (CALC)); POTASSIUM 4.7 mmol/l (3.5-5.1); SGOT/AST 23 u/l (17-59); TOTAL PROTEIN 7.5 g/dL (6.3-8.2)
[2025-01-10] MEDS ORDERED: DOXYCYCLINE HYCLATE 100 MG in SODIUM CHLORIDE 0.9% 100 ML IV ONE (08:20)
[2025-01-10] MEDS ORDERED: Diph, Acellular Pertussis, Tet 0.5 ML/VIAL (Tdap) SDV IM ONE (08:25)
[2025-01-10] MEDS ORDERED: ONDANSETRON HCl 4 MG/2 ML SDV IV ONE (08:40)
[2025-01-10] MEDS ORDERED: MORPHINE SULFATE 4 MG/ML VIAL IV ONE (08:40)
[2025-01-10 08:45] LABS: ALKALINE PHOSPHATASE 130 u/l (38-126); ANION GAP 13 (6-22 (CALC)); CHLORIDE 91 mmol/l (95-108); SODIUM 127 mmol/l (137-146)
[2025-01-10] MEDS ORDERED: INSULIN REGULAR (HUMAN) 100 UNIT/ML INJ IV ONE (08:50)
--- NOTE | 2025-01-10 09:21 | NUR ---
PT RESTING, NO NEEDS AT THIS TIME.
--- NOTE | 2025-01-10 09:40 | NUR ---
WHILE TRYING TO RECONCILLE MEDS, PT STATES HE HAS BEEN OFF MOST OF HIS MEDS FOR OVER A MONTH, BECAUSE DIDNT HAVE ANY, BUT STATES STARTED ON SOME OF THEM SATURDAY, BUT CANT REMEMBER DOSAGES. UNABLE TO VERIFY ANY OF THEM
[2025-01-10] MEDS ORDERED: ACETAMINOPHEN 325 MG/TAB PO PRN (09:50)
[2025-01-10] MEDS ORDERED: ONDANSETRON 4 MG/TAB ODT SL PRN (09:50)
[2025-01-10] MEDS ORDERED: SODIUM CHLORIDE 0.9% 1,000 ML IV PRN (09:50)
[2025-01-10] MEDS ORDERED: Polyethylene Glycol 3350 17 GM/PKT PO PRN (09:50)
[2025-01-10] MEDS ORDERED: HYDROmorphone HCL 2 MG/AMP IV PRN (09:50)
[2025-01-10] MEDS ORDERED: MELATONIN 3 MG/TAB PO PRN (09:50)
[2025-01-10] MEDS ORDERED: oxyCODONE HCL 5 MG/TAB PO PRN (09:50)
[2025-01-10 09:53] LABS: URINE BILIRUBIN - DIPSTICK Negative (NEGATIVE); URINE BLOOD DIPSTICK Negative (NEGATIVE); URINE GLUCOSE - DIPSTICK 500 mg/dL (NEGATIVE); URINE KETONE Negative (NEGATIVE); URINE LEUK ESTERASE Negative (NEGATIVE); URINE NITRITE - DIPSTICK Negative (Negative); URINE PH 5.5 (4.5-8.0); URINE PROTEIN - DIPSTICK Negative (NEG-TRACE); URINE SPECIFIC GRAVITY <=1.005; URINE UROBILINOGEN - DIPSTICK 0.2 E.U./dL (0.2)
[2025-01-10 09:55] LABS: URINE COLOR Yellow
[2025-01-10] MEDS ORDERED: INSULIN LISPRO 100 UNITS/ML ML SC SCH (11:00)
--- NOTE | 2025-01-10 11:13 | NUR ---
01/10/2025 @1057 PT ACCU CHECK IS 532.
[2025-01-10] MEDS ORDERED: GADOPICLENOL (VUEWAY) 0.5 MM/ML 3.75MM/7.5ML VIAL IV ONE (11:30)
--- NOTE | 2025-01-10 13:00 | NUR ---
PT C/O BEING HUNGRY AFTER HAVING MEAL AND REQUEST ANOTHER MEAL TRAY, INFORMED/EDUCATED ON DIET ORDERS, STATED HE WILL HAVE HIS FAMILY BRING IN FOOD FOR HIM IF HE IS NOT ABLE TO GET IT HERE, ALSO STATING HE WANTS TO EAT WHATEVER AND WHENEVER HE WANTS TO EAT. HE ALSO REPORTED HE IS A DNR AND DOES NOT WANT TO BE RESUSSITATED UNDER ANY CIRCUMSTANCE, ADVISED MD WILL BE INFORMED AND SIGN DOCUMENT, HE SAID HE HAS REPORTED HIS CONCERNS TO THIS HOSPITAL MORE THAN ONCE. INFORMED REASON FOR RENEWAL IS THAT PT MAY CHANGE THEIR MIND FROM TIME TO TIME; THEREFORE, STAFF HAS TO BE CERTAIN THEIR WISHES ARE CURRENT AT EACH ADMISSION. HE STATED UNDERSTANDING.
--- NOTE | 2025-01-10 13:29 | NUR ---
REPORT RECEIVED FROM ARMANDO IN ED, PT ARRIVED ON UNIT AT 1031 TRANSPORTED VIA W/C AND AMBULATED TO BED, ALERT AND ORIENTED X 4, C/O SHARP LEFT FOOT PAIN @ 710. ORIENTED TO ROOM AND CALL LINO, SETTLED IN BED.
[2025-01-10] MEDS ORDERED: Meropenem 1 GM in SODIUM CHLORIDE 0.9% 100 ML IV SCH (14:00)
--- NOTE | 2025-01-10 17:22 | NUR ---
PINS AND SCREWS IN NECK, LOWER BACK, SHOULDERS, FACE AND STEEL PLACES IN HEAD
--- NOTE | 2025-01-10 17:29 | NUR ---
COTTON MACHINE OPERATOR REPORTED PROCEDURE WILL BE ADDRESSED IN AM.
--- NOTE | 2025-01-10 19:20 | NUR ---
PATIENT OBSERVED SITTING UP IN BED. ALERT AND ABLE TO MAKE NEEDS KNOWN. ASSESSMENT COMPLETE. NO DISTRESS NOTED. NO COMPLAINTS OF PAIN AT THIS TIME. LEFT FOOT APPEARS SLIGHTLY EDEMATOUS. PATIENT HAS IT ELEVATED ON PILLOWS. REMINDED PATIENT HE IS NPO AFTER MIDNIGHT. DENIES NEEDING ANYTHING AT THIS TIME. BED IN LOW POSITION. CALL LINO IN REACH.
--- NOTE | 2025-01-10 19:55 | NUR ---
NOTIFIED MD OF PATIENT BS OF 421 WITH A GLUCOSE LAB DRAW OF 434. CONTINUE TO GIVE ONLY 14 UNITS PER MD AND SLIDING SCALE ORDER.
--- NOTE | 2025-01-10 20:30 | NUR ---
PATIENT REFUSED TO LET WATER RESOURCES ENGINEER PAD SIDERAILS FOR SEIZURE PRECAUTIONS.
[2025-01-10] MEDS ORDERED: ATORVASTATIN CALCIUM 40 MG/TAB PO SCH (21:00)
[2025-01-10] MEDS ORDERED: METOPROLOL TARTRATE 25 MG/TAB PO SCH (21:00)
--- NOTE | 2025-01-10 23:55 | NUR ---
PATIENT REMAINS RESTING IN BED. DENIES NEEDING ANYTHING AT THIS TIME. BED REMAINS IN LOW POSITION. CALL LINO IN REACH.
[2025-01-11] VITALS (7 sets, daily range): BP systolic 100–163; BP diastolic 62–87
--- NOTE | 2025-01-11 04:15 | NUR ---
PATIENT REMAINS RESTING IN BED. DENIES NEEDING ANYTHING AT THIS TIME. REMAINS NPO PER DR ORDERS. CALL LINO AND BELONGINGS IN REACH.
[2025-01-11 04:30] LABS: BASO% 0.4 % (0-3); HEMATOCRIT 40.6 % (39.0-50.0); HEMOGLOBIN 13.8 g/dl (14.0-18.0); MEAN CORPUSCULAR HGB 27.9 pG CALC (26.0-32.0); MONO% 10.6 % (2-13); NEUT# 6.15 thou/uL (1.82-7.42); RED BLOOD COUNT 4.95 mill/uL (4.70-6.10); RED CELL DISTRI WIDTH 12.2 % (11.5-15.5)
[2025-01-11 04:48] LABS: ALBUMIN 3.2 g/dL (3.2-5.0); BILIRUBIN, TOTAL 0.5 mg/dL (0.2-1.3); CREATININE 1.2 mg/dL (0.7-1.3); MAGNESIUM 1.9 mg/dL (1.6-2.3); POTASSIUM 4.2 mmol/l (3.5-5.1); TOTAL PROTEIN 6.3 g/dL (6.3-8.2)
--- NOTE | 2025-01-11 08:10 | NUR ---
PT IS FOUND IN BED AND IN SEVERE PAIN. PT IS HAVING SURGERY ON HIS LEFT FOOT TODAY AT 11AM WITH DR. MERINO. PT IS A&O X4; STABLE. PT CAN MOVE ALL EXTREMITES; NWB ON LEFT FOOT. PLAN OF CARE WAS REVIEWED WITH THE PT; NO FURTHER QUESTIONS AT THIS TIME. CALL LIGHT IS WITHIN REACH; BED ALARM IS ON.
[2025-01-11] MEDS ORDERED: LOSARTAN Potassium 50 MG/TAB PO SCH (09:00)
[2025-01-11] MEDS ORDERED: INSULIN GLARGINE 100 UNITS/ML SC SCH (09:00)
[2025-01-11] MEDS ORDERED: SODIUM CHLORIDE 0.9% 1,000 ML BAG IV ONE (09:23)
[2025-01-11] MEDS ORDERED: MIDAZOLAM HCL 2 MG/2 ML VIAL IV ONE (09:23)
[2025-01-11] MEDS ORDERED: PROPOFOL 200 MG/20 ML VIAL IV ONE (09:23)
[2025-01-11] MEDS ORDERED: LIDOCAINE HCL 2% 2ML SDV IV ONE (09:23)
[2025-01-11] MEDS ORDERED: BUPIVACAINE HCL PF 0.5% 30 ML VIAL ONE (10:57)
[2025-01-11] MEDS ORDERED: STERILE WATER FOR IRRIGATION 500 ML BTL IR ONE (10:57)
[2025-01-11] MEDS ORDERED: SODIUM CHLORIDE 0.9% 1,000 ML IV ONE (11:19)
[2025-01-11] MEDS ORDERED: FAMOTIDINE 10MG/ML 2ML SDV IV ONE (11:29)
[2025-01-11] MEDS ORDERED: HYDROmorphone HCL 2 MG/AMP ONE (11:33)
--- NOTE | 2025-01-11 12:10 | NUR ---
PT IS IN SX CURRENTLY. PT LEFT FLOOR AT 1110; SHOULD BE BACK AROUND 1230-1PM.
--- NOTE | 2025-01-11 14:15 | NUR ---
THIS RN RECEIVED A DETAIL REPORT FROM PACU STAFF. PT WAS REPORTEDLY COMBATIVE DOWN IN THE PACU. KONSTANTIN (ICU/ NEURO DIRECTOR) BROUGHT HIM BACK TO HIS ROOM (277). PATIENT STATED HE TRUST THIS RN AND KONSTANTIN TO BE AROUND HIM. PATIENT'S NEPHEW WAS AT BEDSIDE. PT WAS VISIBLY UPSET. PT STATED HE WAS SCARE, HE WAS CRYING AND HE HAD A BIT OF PAIN. KONSTANTIN AND THIS RN GOT HIM SETTLED. PT WISHED TO REMAIN IN THE WHEELCHAIR; IT MADE HIM FEEL MORE SAFE. PT REFUSED ALL VITALS AND BLOOD SUGAR POST OP. PT WAS A&O X3 BUT "NOT HIMSELF". THIS RN REMAINED AT BEDSIDE UNTIL PT WAS FEELING BETTER. CALL LIGHT IS WITHIN REACH AND FAMILY IS AT BEDSIDE.
--- NOTE | 2025-01-11 16:15 | NUR ---
PT'S CONDITION REMAINS THE SAME. PT FEELS SAFE IN HIS ROOM; CALL LIGHT IS WITHIN REACH.
--- NOTE | 2025-01-11 16:42 | NUR ---
PT IS DOING MUCH BETTER HE STATES. PT IS STILL IN PAIN- WILL MEDICATE NEEDED. HE LET THIS RN TAKE VITALS BUT IS REFUSING BLOOD SUGAR CHECK. HE IS EATING AND IS MORE COGNITIVELY AWARE. PT IS STILL IN WHEELCHAIR REQUESTED. CALL LIGHT IS WITHIN REACH.
--- NOTE | 2025-01-11 21:00 | NUR ---
drowsy when awakened. dsg cdi to lt foot. no c/o pain voiced. ivf infusing well. refused telemetry & glucometer.
[2025-01-12] VITALS (7 sets, daily range): BP systolic 99–161; BP diastolic 58–84
--- NOTE | 2025-01-12 00:05 | NUR ---
awake. drinking & voiding lg amounts. has been medicated for pain as requested.
--- NOTE | 2025-01-12 03:58 | NUR ---
awake. has been medicated for pain as requested. ivf infusing well.
[2025-01-12 05:20] LABS: BASO% 0.1 % (0-3); EOS% 0.1 % (0-8); HEMATOCRIT 40.6 % (39.0-50.0); HEMOGLOBIN 13.6 g/dl (14.0-18.0); IMMATURE GRANULOCYTES 1.8 % (0.0-5.0); LYMPH% 7.8 % (15-41); MEAN CELL VOLUME 81.7 fL CALC (80.0-100.0); MEAN CORPUSCULAR HGB 27.4 pG CALC (26.0-32.0); MEAN CORPUSCULAR HGB CONC 33.5 g/dL CAL (32.0-36.0); MONO% 8.6 % (2-13); NEUT# 13.69 thou/uL (1.82-7.42); NEUT% 81.6 % (42-76); RED BLOOD COUNT 4.97 mill/uL (4.70-6.10); RED CELL DISTRI WIDTH 12.3 % (11.5-15.5)
--- NOTE | 2025-01-12 05:20 | NUR ---
c/o lt foot dressing "too tight." requested this gag writer to "take it off." told pt no & he began to remove dressing. instructed pt he could explain to dr jeffery the reason he removed it. oxycodone 5mg po given per request.
[2025-01-12 05:36] LABS: ALBUMIN 3.1 g/dL (3.2-5.0); BILIRUBIN, TOTAL 0.7 mg/dL (0.2-1.3); CREATININE 1.5 mg/dL (0.7-1.3); MAGNESIUM 2.2 mg/dL (1.6-2.3); TOTAL PROTEIN 6.4 g/dL (6.3-8.2)
[2025-01-12 05:49] LABS: POTASSIUM 5.2 mmol/l (3.5-5.1)
--- NOTE | 2025-01-12 08:01 | NUR ---
PT YELLING AT STAFF, THREATED TO THROW BREAKFAST TRAY AT STAFF BECAUSE IT HAD TURKEY FAM ON IT. SPOKE TO PT ABOUT GETTING A NEW TRAY, PT CALMED DOWN. PT REPORTH THAT HE REMOVED HIS FOOT DRESSING THIS MORNING AND RE-WRAPPED HIS FOOT. SPOKE TO PT ABOUT THE RISK OF INFECTION.
[2025-01-12] MEDS ORDERED: INSULIN GLARGINE 100 UNITS/ML SC SCH (09:00)
[2025-01-12] MEDS ORDERED: HYDROmorphone HCL 2 MG/AMP IV PRN (09:40)
--- NOTE | 2025-01-12 11:10 | NUR ---
TELEPHONE ORDER TAKEN FROM DR MERINO TO CHANGE LEFT FOOT DRESSING BEDAINE WET TO DRY, WRAP WITH KURLEX, FOLLOWED BY AN DMITRI BANDAGE.
--- NOTE | 2025-01-12 13:01 | NUR ---
PERFORMED DRESSING CHANGED ON LEFT FOOT. WOUND CLOSER TO TOES HAS ONE AREA OF SUTURSE WITH PURULENT DROPS. COVERED WITH BATADINE DRESSING, THEN DRY 4X4 GAUZE, KURLEX WRAP, FOLLOWED BY AN DMITRI DRESSING. RE-EDUCATED PT ON IMPORTANCE OF STAYING OFF FOOT. ELEVATED FOOT ON 2 PILLOWS. PT TOLERATED WITH PAIN MEDICATION. PT ON IM
--- NOTE | 2025-01-12 20:30 | NUR ---
awake. talking on cell phone. no c/o pain voiced. dsg to lt foot cdi. po fluids taken well. voids per urinal.
--- NOTE | 2025-01-12 23:10 | NUR ---
[id number] report given from previous nurse Glory. pt lying in bed on left side. appears to be sleeping. good rise and fall of chest. HOB at 15 degrees per patient
[2025-01-13] VITALS: BP 119/60
[2025-01-13 04:12] VITALS: BP 119/60
[2025-01-13 07:00] VITALS: BP 120/71
[2025-01-13 07:19] LABS: BASO% 0.4 % (0-3); EOS% 2.3 % (0-8); HEMATOCRIT 38.4 % (39.0-50.0); HEMOGLOBIN 12.8 g/dl (14.0-18.0); IMMATURE GRANULOCYTES 0.8 % (0.0-5.0); LYMPH% 21.3 % (15-41); MEAN CORPUSCULAR HGB 28.3 pG CALC (26.0-32.0); MEAN CORPUSCULAR HGB CONC 33.3 g/dL CAL (32.0-36.0); NEUT# 6.33 thou/uL (1.82-7.42); NEUT% 66.2 % (42-76); RED BLOOD COUNT 4.52 mill/uL (4.70-6.10); RED CELL DISTRI WIDTH 12.3 % (11.5-15.5)
--- NOTE | 2025-01-13 07:22 | NUR ---
PT IS AOX4, RESPIRATIONS ARE EVEN AND UNLABORED ON ROOM AIR, LUNGS ARE CLEAR THROUGHOUT, BOWEL SOUNDS ARE ACTIVE, PEDAL PULSES ON LEFT FOOR IS WEAK, FOOT IS WARM TO THE TOUCH, LEFT FOOT DRESSING IS CLEAN, DRY, INTACT. RIGHT FOOT PEDAL PULSE IS WEAK, FOOT IS COOL TO THE TOUCH. PT REPORTS A THROBBING PAIN IN LEFT FOOT AT A 8 ON A 0-10 PAIN SCALE. FOOT IS CURRENTLY ELEVATED ON 2 PILLOWS. WILL BRING PT THE ORDERED PRN PAIN MEDICATION WITH MORNING MEDS.
[2025-01-13 07:31] LABS: ALBUMIN 2.9 g/dL (3.2-5.0); BILIRUBIN, TOTAL 0.6 mg/dL (0.2-1.3); CREATININE 1.2 mg/dL (0.7-1.3); MAGNESIUM 2.1 mg/dL (1.6-2.3)
[2025-01-13 07:38] LABS: POTASSIUM 3.7 mmol/l (3.5-5.1)
--- NOTE | 2025-01-13 08:07 | NUR ---
PT REFUSING TO WEAR TELE MONITOR, PT SIGNED RELEASE, KOBE KELSEY NOTIFIED.
--- NOTE | 2025-01-13 08:14 | NUR ---
0616 PT advised npt to put pressure on affected site. pt would like to walk to restroom instead of using BSC> educated pt on risk putting weight on surgical site. and benefits of using BSC. pt continued to walk to the restroom. stated " i'm was going anyways"
[2025-01-13 10:26] VITALS: BP 108/65
--- NOTE | 2025-01-13 14:30 | NUR ---
LEFT FOOT DRESSING CHANGE ORDERED BY DR MERINO. REMOVED OLD DRESSING, SITE IS CLEAN, DRY WITH NO DRAINAGE NOTED, SUTURES ARE INTACT. COVEDED SITE WITH 4X4 BETADINE DRESSING, THEN COVERED WITH A DRY 4X4, THEN WRAPPED IN KURLEX GAUZE FOLLOWED BY AN DMITRI WRAP. PT TOLERATED WITH NO COMPLAINTS.
[2025-01-13 15:26] VITALS: BP 140/82
--- NOTE | 2025-01-13 17:56 | NUR ---
PT RESTING COMFOTABLY IN BED WITH LEFT FOOT ELEVATED ON 2 PILLOWS. PT IN NO ACUTE DISTRESS AT THIS TIME.
[2025-01-13 18:59] VITALS: BP 165/94
--- NOTE | 2025-01-13 20:45 | NUR ---
PT RESTING NO DISTRESS NOTED ON ASSESSMENT. PT STATED HAVING LEFT FOOT PAIN /. IV PAIN MEDICATION GIVEN. IV FLUSHED PROPERLY WORKING PROPERLY. LEFT FOOT DRESSING NOTED WITH OLD DRAINAGE. CALL LIGHT WITHIN REACH. PLAN OF CARE ONGOING. PT REMINDED TO USE CALL LIGHT FOR ASSISTANCE DUE TO ONLY BEING ABLE TO USE HIS LEFT FOOT HEEL TO AMBULATE.
--- NOTE | 2025-01-14 | NUR ---
PT SLEEPING NO DISTRESS NOTED ON EXAM BREATHING EVENLY. CALL LIGHT WITHIN REACH. PLAN OF CARE ONGOING.
--- NOTE | 2025-01-14 04:00 | NUR ---
PT SLEEPING BREATHING EVENLY NO DISTRESS NOTED ON EXAM. CALL LIGHT WITHIN REACH. PLAN OF CARE ONGOING.
[2025-01-14 04:17] VITALS: BP 122/77
[2025-01-14 05:28] LABS: BASO% 0.4 % (0-3); EOS% 2.2 % (0-8); HEMATOCRIT 40.6 % (39.0-50.0); HEMOGLOBIN 13.4 g/dl (14.0-18.0); IMMATURE GRANULOCYTES 0.5 % (0.0-5.0); LYMPH% 20.9 % (15-41); MEAN CELL VOLUME 84.6 fL CALC (80.0-100.0); MEAN CORPUSCULAR HGB 27.9 pG CALC (26.0-32.0); MONO% 9.7 % (2-13); NEUT# 5.38 thou/uL (1.82-7.42); NEUT% 66.3 % (42-76); RED BLOOD COUNT 4.8 mill/uL (4.70-6.10); RED CELL DISTRI WIDTH 12.2 % (11.5-15.5)
[2025-01-14 05:35] LABS: ALBUMIN 2.8 g/dL (3.2-5.0); BILIRUBIN, TOTAL 0.6 mg/dL (0.2-1.3)
--- NOTE | 2025-01-14 07:45 | NUR ---
PT IS LAYING FLAT IN BED WATCHING TV. PT HAS FOOT ELEVATED ON TWO PILLOW, NURSE REPOSITIONED FOOT SO THAT HEEL WOULD HANG. PT SDTATED BEING IN PAIN, WILL MEDICATE DURING MED PASS. PT IS ALERT AND ORIENTED. BM THIS MORNING LOOSE AND BROWN. LEFT FOOT DRESSING INTACT, BUT WET. PANICO COMING SHORTLY TO CHANGE DRESSING. PT REST EVEN AND UNLABORED ON ROOM AIR. NORMAL S1,S2 HEART RYTHM. ALERT AND ORIENTED X3. STRONG RADIAL, WEAK PEDAL PULSES. PT DECLINES ANY NEEDS AT THIS TIME. BED IN THE LOWEST POSITION AND CALL LIGHT WITHIN REACH.
--- NOTE | 2025-01-14 08:00 | NUR ---
DOCTOR REGULO CAME TO ASSESS PTS LEFT FOOT. DRESSING WAS REMOVED AND FOOT WAS EXAMINED. LOWER STITCHED INCISION LOOKED CLEAN AND HEALTHY. TOP INCISION WILL MONITOR CLOSER DUE TO SOME SWELLING. MINIMAL RED RASH TO THE INSIDE OF LEFT FOOT TO CONTINUE MONITORING. REAPPLIE BETADINE WET TO DRY, KERLEX, AND ELASTIC BANDAGE ON TOP. PLACED PTS FOOT ON TWO PILLOW TO ELEVATE. REINFORCED PT TO WALK ON HEEL WHEN AMBULATING AND CALL NURSE FOR ASSISTANCE.
[2025-01-14 08:12] VITALS: BP 143/81
--- NOTE | 2025-01-14 12:10 | NUR ---
PT IS LAYING FLAT IN BED W2ITH LEFT FOOT ELEVATED. PT DECLINES NEEDING ANY PAIN MEDICATION AT THIS TIME HIS PAIN SCALE IS 5. NO S/S OF DISTRESS AT THIS TIME. RESP EVEN AND UNLABORED ON ROOM AIR. SAFETY PRECAUTIONS REINFORCED. NS GOING AT 100 IN HIS R WRIST. PT REMINDED TO CALL BEFORE AMBULATING. BED IN THE LOWEST POSITION AND CALL LIGHT WITHIN REACH
[2025-01-14 14:41] VITALS: BP 129/65
--- NOTE | 2025-01-14 16:04 | NUR ---
PT LAYING FLAT IN BED WITH LEFT FOOT ELEVATED AND EYES CLOSED. PT SLEEPING AT THIS TIME. NO S/S OF DISTRESS. BREATHING CLEAR AND UNLABORED ON ROOM AIR. DRESSING DRY AND INTACT ON LEFT FOOT. NORMAL SALINE GOING AT 100. BED IN THE LOWEST POSITION AND CALL LIGHT WITHIN REACH.
[2025-01-14 19:19] VITALS: BP 153/72
--- NOTE | 2025-01-14 19:40 | NUR ---
PATIENT OBSERVED RESTING IN BED. ALERT AND ABLE TO MAKE NEEDS KNOWN. ASSESSMENT COMPLETE. DRESSING REMAINS IN PLACE TO LEFT FOOT. PATIENT ABLE TO WIGGLE TOES. NO COMPLAINTS OF PAIN. NO DISTRESS NOTED. BED REMAINS IN LOW POSITION. CALL LINO IN REACH.
--- NOTE | 2025-01-15 00:35 | NUR ---
PATIENT REMAINS RESTING IN BED. DENIES NEEDING ANYTHING AT THIS TIME. NO COMPLAINTS OF PAIN. BED IN LOW POSITION. CALL LINO IN REACH.
--- NOTE | 2025-01-15 00:49 | NUR ---
RECEIVED PRN PAIN MEDICATION PER ORDERS FOR LEFT FOOT. PATIENT TOLERATED WELL.
--- NOTE | 2025-01-15 03:50 | NUR ---
PATIENT REMAINS RESTING IN BED. NO COMPLAINTS OF PAIN TO LEFT FOOT AT THIS TIME. CALL LINO AND BELONGINGS REMAIN IN REACH.
--- NOTE | 2025-01-15 03:50 | NUR ---
PATIENT REMAINS RESTING IN BED ON HIS LEFT SIDE. NO DISTRESS NOTED. NO COUGHING OBSERVED. DENIES NEEDING ANYTHING AT THIS TIME.
[2025-01-15 04:00] VITALS: BP 127/76
[2025-01-15 04:25] VITALS: BP 127/76
[2025-01-15 05:35] LABS: BASO% 0.4 % (0-3); EOS% 1.9 % (0-8); HEMATOCRIT 40.2 % (39.0-50.0); HEMOGLOBIN 13.4 g/dl (14.0-18.0); IMMATURE GRANULOCYTES 0.5 % (0.0-5.0); LYMPH% 24.3 % (15-41); MEAN CELL VOLUME 83.2 fL CALC (80.0-100.0); MEAN CORPUSCULAR HGB 27.7 pG CALC (26.0-32.0); MEAN CORPUSCULAR HGB CONC 33.3 g/dL CAL (32.0-36.0); MONO% 10.3 % (2-13); NEUT# 4.88 thou/uL (1.82-7.42); NEUT% 62.6 % (42-76); RED BLOOD COUNT 4.83 mill/uL (4.70-6.10)
[2025-01-15 05:48] LABS: ALBUMIN 2.6 g/dL (3.2-5.0); BILIRUBIN, TOTAL 0.5 mg/dL (0.2-1.3); CREATININE 0.9 mg/dL (0.7-1.3); MAGNESIUM 1.9 mg/dL (1.6-2.3); POTASSIUM 4.1 mmol/l (3.5-5.1); TOTAL PROTEIN 5.8 g/dL (6.3-8.2)
[2025-01-15 07:12] VITALS: BP 143/85
--- NOTE | 2025-01-15 08:00 | NUR ---
PT IS LAYING FLAT IN BED SLEEPING. PT ARROUSES EASILY TO VERBAL STIMULI. LEFT FOOT ELEVATED ANF DRESSING DRY AND INTACT. PT WIGGLES TOES WITH EASE UPON REQUEST. PT STRONG RADIAL AND PEDAL PULSES. RESP EVEN AND UNLABORED ON ROOM AIR. ACTIVE BOWEL SOUNDS IN ALL 4. PT STATES A 5 ON A PAIN SCALE, REPOSITIONED FOOT ON 2 PILLOWS TO BETTER SUPPORT. PT TEACHING REINFORCED TO CALL FOR ASSISTANCE AND HEAL TOUCH WHEN AMBULATING. BED IN THE LOWEST POSITION AND CALL LIGHT WITHIN REACH.
--- NOTE | 2025-01-15 08:15 | NUR ---
REMOVED PTS DRESSING ON THE LEFT FOOT AT DOCTOR PANICOS REQUEST. ASSESSED STITCHED INCISION AND SENT DOCTOR PANICO IMAGES. LEAVING PTS DRESSING OFF AT THIS TIME FOR THE DOCTOR ROUNDING TO THOROUGHLY EXAMINE. WILL REAPPLY DRESSING AFTER ROUNDS, LEFT FOOT ELEVATED ON 2 PILLOWS ON STERILE FIELD AT THIS TIME. PT ENCORAGED TO CALL FOR ASSISTANCE, CALL LINO WITHIN REACH
--- NOTE | 2025-01-15 11:30 | NUR ---
DRESSING REAPPLIED TO LEFT FOOT AFTER DOCTOR EXAMINED. STILL HAVE REDNESS ON THE INSIDE/ ARCH OF FOOT TO CLOSELY MONITOR. BETADINE WET TO DRY, NONSTICK PAD, KERLEX, AND DMITRI BANDAGE. ELEVATED PTS FOOT ON 2 PILLOWS. DRESSING IS CLEAN AND INTACT AT THIS TIME.
--- NOTE | 2025-01-15 12:00 | NUR ---
PT IS SITTING ON THE EDGE OF THE BED EATING LUNCH. PT DECLINES ANY NEEDS AT THIS TIME. DRESSING IS DRY AND INTACT. RESP EVEN AND UNLABORED ON ROOM AIR. PT REMINDED TO CALL FOR ASSIST WHEN AMBULATING AND HEEL TOUCH ONLY. BED IN THE LOWEST POSITION AND CALL LIGHT WITHIN REACH.
--- NOTE | 2025-01-15 16:00 | NUR ---
PT LAYING IN BEDSIDE CHAIR WITH EYES CLOSED SLEEPING. RESP EVEN AND UNLABORED ON ROOM AIR. LEFT FOOT IS ELEVATED ON RECLINER FOOT REST. PT ARROUSES EASILY TO VERBAL STIMULI. DRESSING DRY AND INTACT. PT DECLINES ANY NEEDS AT THIS TIME. CALL LIGHT WITHIN REACH
[2025-01-15 18:16] VITALS: BP 162/91
--- NOTE | 2025-01-15 20:00 | NUR ---
RECEIVED REPORT FROM NURSE SERENE, PATIENT SITTING IN BED, DRESSING ON LEFT FOOT, PATIENT IV ON RT WRIST PATENT FLUSHES WELL, PATIENT ALERT ORINTED, DENIES PAIN AT THIS TIME, LUNG SOUNDS CLEAR,CALL LIGHT WITHIN REACHED,ISOLATION IN PLACED.
--- NOTE | 2025-01-16 | NUR ---
PATINET RESTING IN BED, EYES CLOSED BREATHING EVEN UNALBORED CALL LIGHT WITHIN REACHED.
--- NOTE | 2025-01-16 03:31 | NUR ---
PATIENT RESTING IN BED EYES CLOSED BREATHING EVEN UNLABORED, REMAINS ON ISOLATION, CALL LIGHT WITHIN REACHED.
[2025-01-16 04:46] VITALS: BP 152/88
[2025-01-16 05:01] LABS: BASO% 0.4 % (0-3); EOS% 2.2 % (0-8); HEMATOCRIT 40.3 % (39.0-50.0); HEMOGLOBIN 13.3 g/dl (14.0-18.0); IMMATURE GRANULOCYTES 0.3 % (0.0-5.0); LYMPH% 25.2 % (15-41); MEAN CELL VOLUME 84.7 fL CALC (80.0-100.0); MEAN CORPUSCULAR HGB 27.9 pG CALC (26.0-32.0); NEUT# 4.46 thou/uL (1.82-7.42); NEUT% 61.9 % (42-76); RED BLOOD COUNT 4.76 mill/uL (4.70-6.10)
[2025-01-16 05:04] LABS: ALBUMIN 2.9 g/dL (3.2-5.0); BILIRUBIN, TOTAL 0.4 mg/dL (0.2-1.3); MAGNESIUM 1.8 mg/dL (1.6-2.3); POTASSIUM 4.1 mmol/l (3.5-5.1); TOTAL PROTEIN 6.2 g/dL (6.3-8.2)
[2025-01-16 06:59] VITALS: BP 151/83
--- NOTE | 2025-01-16 08:00 | NUR ---
Patient is resting in bed. Complains of left foot pain to incisions. Pain medication to control pain. Continue ATB therapy with no adverse reactions noted.
--- NOTE | 2025-01-16 12:00 | NUR ---
Patient is with family sitting on couch. No distress noted. Will change dressing this afternoon after pain medication is administered.
[2025-01-16 15:18] VITALS: BP 169/88
--- NOTE | 2025-01-16 16:00 | NUR ---
Dressing to left foot changed. Tolerated well. Resting in bed. No distress noted.
[2025-01-16 18:23] VITALS: BP 156/86
--- NOTE | 2025-01-16 20:00 | NUR ---
RECEIVED REPORT FROM FRANCISCA LAM RESTING IN BED, REMAINS ON ISOLATION,DENIES PAIN AT THSI TIME, IV ON RT WRIST PATENT FLUSES,DENEIS PAIN AT THIS TIME, BREATJHING EVEN UNLABORED CALL LIGHT WITHIN REACHED.
--- NOTE | 2025-01-16 23:49 | NUR ---
patinet c/o pain ps 6/10, prn roxicodone given, call light within reached, safety precaution in placed.
--- NOTE | 2025-01-17 03:56 | NUR ---
DINORA RESTING IN BED, NO DISCOMFORTS NOTED AT THSI TIME, REMAINS ON ISOLATION, BREATHING EVEN UNALBORED CALL LIGHT WITHIN REACHED.
[2025-01-17 04:48] VITALS: BP 169/87
--- NOTE | 2025-01-17 07:00 | NUR ---
SHIFT CHANGE REPORT, PT SLEEPING BUT RESPONDS TO VERVAL STIMULI, ORIENTED, NO C/O DISCOMFORT AT THIS TIME, CALL LINO IN REACH AND BED LOCKED IN LOWEST POSITION.
[2025-01-17 07:04] LABS: HEMATOCRIT 42.7 % (39.0-50.0); HEMOGLOBIN 14.3 g/dl (14.0-18.0); MEAN CELL VOLUME 83.6 fL CALC (80.0-100.0); MEAN CORPUSCULAR HGB CONC 33.5 g/dL CAL (32.0-36.0); RED BLOOD COUNT 5.11 mill/uL (4.70-6.10); RED CELL DISTRI WIDTH 12.1 % (11.5-15.5)
[2025-01-17 07:07] VITALS: BP 139/81
[2025-01-17 07:13] LABS: ALBUMIN 3.2 g/dL (3.2-5.0); BILIRUBIN, TOTAL 0.5 mg/dL (0.2-1.3); CREATININE 1.1 mg/dL (0.7-1.3); POTASSIUM 4.3 mmol/l (3.5-5.1); TOTAL PROTEIN 6.6 g/dL (6.3-8.2)
--- NOTE | 2025-01-17 10:22 | NUR ---
patient glucose level is 397, nurse aware.
--- NOTE | 2025-01-17 10:39 | NUR ---
INFORMED OF CT PROSEDURE AND STATED UNDERSTANDING, BEING TRANSPORTED OFF UNIT AT THIS TIME VIA W/C TO CT PROCEDURE.
--- NOTE | 2025-01-17 11:00 | NUR ---
BLOOD LEVELS HAVE BEEN HIGHLY ELEVATED, FAMILY HAVE BEEN BRINGING IN SWEET SNACKS AND OTHER FOODS FOR PT. PT INFORMED AND EDUCATED ON ADVERSE EFFECTS OF CONTINUED ELEVATED GLUCOSE BUT STATES HE IS A DNR AND WILL EAT WHATEVER HE WANTS TO . DR RODRIGUEZ NOTIFIED OF PT'S REQUEST TO BE DNR BUT STATES ORDER CAN BE DONE POST SURGERY IN AM.
--- NOTE | 2025-01-17 12:35 | NUR ---
REQUEEST TO HAVE DRESSING TO LEFT FOOT FOR ABOUT 2 HOURS THEN TO REDRESS WOUND.
--- NOTE | 2025-01-17 12:43 | NUR ---
PT STATES HE SHOULD HAVE HIS REQUESTED DNR SINCE LAST WEEK AND STATES HE WILL NOT DO ANY SURGERY UNTIL THE DNR IS IN PLACE, LOW ([facility]) NOTIFIED BUT ADVISED TO INFORM DR WINKLER.
--- NOTE | 2025-01-17 14:26 | NUR ---
DRESSING TO LEFT FOOT DONE PER ORDER. PT STATING HE IS LEAVING HE IS TIRED OF BEING HERE AND WILL GO TO [place], ADVISED OF CONSEQUENCES AND PROTOCOL OF LEAVING AMA AND RESPONDED HE KNOWS ALL ABOUT THAT. HE THEN STATED HE WANTS TO GO OUTSIDE FOR FRESH AIR, ADVISED PF POLICY BUT STATED HE HAS BEEN LET OUT BEFORE BY HIMSELF AND RETURNED TO ROOM. HE DENIES WANTING TO GO OUT TO SMOKE. HE REQUEST TO SPEAK TO THE MUSIC ENGINEER AT THIS TIME, GAUTAM INFORMED AND WILL ADDRESS PT'S CONCERN NOW.
--- NOTE | 2025-01-17 14:50 | NUR ---
SUBSTATION ELECTRICIAN SPOKE WITH PT, NOTIFIED DR WINKLER WHO ENCOURAGED PT TO STAY UNTIL AFTER PORCEDURE IS DONE TOMORROW AND HE WILL GIVE WRITTEN CONSENT FOR PT TO GO OUTSIDE FO 20 MINS TOMORROW ACCOMPAINED BY STAFF. PT STATED HE IS AGREEABLE TO THAT PLAN.
[2025-01-17 15:04] VITALS: BP 165/130
[2025-01-17 15:27] VITALS: BP 142/73
--- NOTE | 2025-01-17 16:58 | NUR ---
SITTING UP IN RECLINER AT THIS TIME, AGITATION AND AMXIETY RELIEVED SINCE MD COMMUNICATED WITH HIM VIA TELEPLONE.
--- NOTE | 2025-01-17 19:30 | NUR ---
REPORT RECEIVED FROM MEJIA FLORES. PATIENT RESTING IN SUPINE POSITION. ALERT AND ORIENTED X3. REPORTS PAIN TO HIS LEFT FOOT 7/10 ON PAIN SCALE. RESPS ARE EVEN AND UNLABORED NO VISUAL SIGNS OF DISTRESS. LUNGS ARE CLEAR TO AUSCULTATION. DRESSIMG TO HIS LEFT FOOT IS INTACT WITHOUT ANY BLEEDING. LEFT FOOT IS ELEVATED IN 2 PILLOWS AT THIS TIME. 22 G IV TO RIGHT WRIST- SALINE LOCK FLUSHED WITH 5 CC. STRONG PERIPHERAL PULSES TO TOUCH. CALL LIGHT IS IN REACH AND SAFETY PRECAUTIONS IN PLAE. INSTRCUTED TO CALL FOR ASSISTANCE AND VERBALIZES UNDERSTANDING.
[2025-01-17 19:51] VITALS: BP 166/87
--- NOTE | 2025-01-17 20:31 | NUR ---
PATIENT BLOOD SUGAR 433, STAT GLUCOSE OBTAINED PER PROTOCOL RECEIVED A PHONE CALL FROM LAB CRITICAL GLUCOSE 469, NOTIFIED DR. WINKLER THAT PATIENT IS ALSO NPO AT MIDNIGHT, SLIDING SCALE ORDER TO GIVE 14 UNITS SUBCUTANEOUSLY, NO ADDITIONAL INSULIN NEEDED AT THIS TIME.
--- NOTE | 2025-01-18 | NUR ---
PATIENT IN CONTACT PRECAUTIONS SITTIG UP ON THE RECLINER AT THIS TIME. BREATHING IS EVEN AND UNLABORED ON ROOM AIR. PT IS AWARE THAT AT THIS TIME HE IS NPO. SNACKS AND PITCHER REMOVED FROM BEDSIDE TABLE. URYNAL EMPTIED WITH 1000 MLS. REMINDED TO PT TO KEEP HIS L FOOT ELEVATED. CALL LIGHT IS IN REACH AND SAFETY PRECAUTIONS IN PLACE.
--- NOTE | 2025-01-18 00:28 | NUR ---
patinet c/o pain on operative foot, ps 7/10, prn roxicodone given.trever breathing even unlabored, placed patient on npo, call light within reached.
[2025-01-18 03:43] VITALS: BP 152/86
--- NOTE | 2025-01-18 03:52 | NUR ---
PATIENT OBSERVED RESTING IN SUPINE POSITION. BREATHING IS EVEN ON ROOM AIR. PT REMAINS NPO AT THIS TIME. CALL LIGHT IS IN REACH AND SAFETY PRECAUTIONS IN PLACE.
[2025-01-18 05:41] LABS: HEMATOCRIT 45.1 % (39.0-50.0); HEMOGLOBIN 15.1 g/dl (14.0-18.0); MEAN CELL VOLUME 82.9 fL CALC (80.0-100.0); MEAN CORPUSCULAR HGB 27.8 pG CALC (26.0-32.0); MEAN CORPUSCULAR HGB CONC 33.5 g/dL CAL (32.0-36.0); RED BLOOD COUNT 5.44 mill/uL (4.70-6.10)
[2025-01-18 05:48] LABS: ALBUMIN 3.6 g/dL (3.2-5.0); BILIRUBIN, TOTAL 0.5 mg/dL (0.2-1.3); CREATININE 1.1 mg/dL (0.7-1.3); POTASSIUM 4.4 mmol/l (3.5-5.1); TOTAL PROTEIN 7.3 g/dL (6.3-8.2)
--- NOTE | 2025-01-18 07:24 | NUR ---
PT IS ALERT TIMES 4. PT ADMITTING DX IS LEFT FOOT CELLULITIES. AT MORNING SAFETY ROUNDS PT WAS OBSERVED IN HIS BED RESTING. PT HAS A WRAPPING FOR HIS WOUND TO THE LEFT FOOT PT HAS NO C/O PAIN AT THIS TIME. PT IV SITE IS CLEAN AND DRY NO S/O INFECTION NOTED. PT WAS SEEN BY THE MD THIS MORNING PT WILL BE DISCHARGED ON THIS SHIFT WITH F/U WITH PRIMARY CARE IN THE COMMUNITIY. PT CALL LINO IS WITHIN REACH ALL SAFETY MEASURES IN PLACE.
[2025-01-18 07:29] VITALS: BP 142/87
[2025-01-18 07:42] VITALS: BP 142/87
[2025-01-18] MEDS ORDERED: BACTRIM DS1 TAB PO (08:31)
--- NOTE | 2025-01-18 09:08 | NUR ---
Discharge instructions given. Patient verbalizes understanding of same. Discharged in stable condition via Wheelchair to Home with family. All belongings sent with pt.
== END 2025-01-18 09:29 | DRG 854 ==
LOC: ED 07:27 → ED-I 08:40 → ED 09:24 → MS2 09:25
PROVIDERS: Family Medicine; Nurse Practitioner Family; ADMIT Internal Medicine; ATTEND Internal Medicine
PROC: 0JCR0ZZ Extirpation of Matter from Left Foot Subcutaneous Tissue and Fascia, Open Approach (ICD-10-PCS; principal; 2025-01-11)
PROC: 0J9R0ZZ Drainage of Left Foot Subcutaneous Tissue and Fascia, Open Approach (ICD-10-PCS; 2025-01-11)
DX: A41.9 Sepsis, unspecified organism (principal); L02.612 Cutaneous abscess of left foot; L03.116 Cellulitis of left lower limb; N17.9 Acute kidney failure, unspecified; B95.61 Methicillin susceptible Staphylococcus aureus infection as the cause of diseases classified elsewhere; S91.342A Puncture wound with foreign body, left foot, initial encounter; E11.65 Type 2 diabetes mellitus with hyperglycemia; E11.42 Type 2 diabetes mellitus with diabetic polyneuropathy; I10 Essential (primary) hypertension; H54.8 Legal blindness, as defined in USA; G40.909 Epilepsy, unspecified, not intractable, without status epilepticus; W26.9XXA Contact with unspecified sharp object(s), initial encounter; Z79.4 Long term (current) use of insulin; Z79.84 Long term (current) use of oral hypoglycemic drugs; T38.3X6A Underdosing of insulin and oral hypoglycemic [antidiabetic] drugs, initial encounter; T46.5X6A Underdosing of other antihypertensive drugs, initial encounter; T42.76XA Underdosing of unspecified antiepileptic and sedative-hypnotic drugs, initial encounter; Z91.128 Patient's intentional underdosing of medication regimen for other reason; Z88.1 Allergy status to other antibiotic agents; Z86.73 Personal history of transient ischemic attack (TIA), and cerebral infarction without residual deficits; Z20.822 Contact with and (suspected) exposure to COVID-19
CPT/HCPCS: 90715; J0457; J1171; J1815; J1885; J2020; J2405